=== PATIENT | male | born 1955 | race Caucasian/White ===

== ENCOUNTER 2017-09-30 03:38 | Inpatient (IN) | payer BC ==
[2017-09-30 04:51] LABS: Basophils # (A) 0.1 k/uL (0-0.2); Basophils % (A) 1 %; Eosinophils # (A) 0.1 k/uL (0-0.7); Eosinophils % (A) 1 %; HCT 43.1 % (39.0-53.0); HGB 15.2 gm/dL (13.0-17.5); Lymphocytes # (A) 1.7 k/uL (1.0-4.8); Lymphocytes % (A) 18 %; MCH 29.1 pg (25.0-35.0); MCHC 35.1 g/dL (31.0-37.0); MCV 82.9 fL (80.0-100.0); Mean Platelet Volume 6.6; Monocytes # (A) 0.7 k/uL (0-1.0); Monocytes % (A) 8 %; Neutrophils % (A) 71 %; Platelet Count 319 k/uL (150-450); RBC 5.21 m/uL (4.30-5.90); RDW 13.2 % (11.5-15.5); WBC 9.8 k/uL (3.8-10.6)
[2017-09-30 05:16] LABS: D-Dimer 0.4 mg/L FEU (<0.60)
[2017-09-30 05:20] LABS: INR 2.1 (<1.2); Partial Thromboplastin Time 30.6 sec (22.0-30.0); Prothrombin Time 19.1 sec (9.0-12.0)
[2017-09-30 05:22] LABS: ALT 35 U/L (21-72); AST 104 U/L (17-59); Albumin 3.9 g/dL (3.5-5.0); Alkaline Phosphatase 113 U/L (38-126); Anion Gap 13 mmol/L; Blood Urea Nitrogen 17 mg/dL (9-20); Calcium 9.5 mg/dL (8.4-10.2); Carbon Dioxide 24 mmol/L (22-30); Chloride 107 mmol/L (98-107); Glucose 167 mg/dL (74-99); Potassium 4.5 mmol/L (3.5-5.1); Sodium 144 mmol/L (137-145); Total Bilirubin 0.4 mg/dL (0.2-1.3); Total Protein 7.1 g/dL (6.3-8.2)
[2017-09-30 05:41] LABS: Creatine Kinase MB 66.7 ng/mL (0.0-2.4)
[2017-09-30 05:42] LABS: Troponin I 13.2 ng/mL (0.000-0.034)
[2017-09-30] MEDS ORDERED: NITROGLYCERIN SL TABS 0.4 MG TAB SUBLINGUAL PRN ×2 (06:03→12:23)
--- NOTE | 2017-09-30 06:07 | ED ---
Chest Pain HPI - General Chief Complaint: Chest Pain Stated Complaint: Chest Pain Time Seen by Provider: 09/30/17 03:40 Source: patient Mode of arrival: EMS Limitations: no limitations - History of Present Illness Initial Comments: This patient is a 62-year-old man who is transferred here from [facility] where he had gone tonight after he developed chest pain. The patient reports she was in usual state of health until between 9 and 10 PM. He had eaten Malcolm and then noticed that he was having pain to the lateral left chest in the midaxillary line, just under the axilla. He describes as an aching , constant, moderate intensity. It was accompanied by some dyspnea, palpitations, and nausea. He took 2 aspirin. The patient went to the other hospital where he was noted to be in atrial fibrillation with rapid ventricular rate, and he also had a minimally elevated troponin at 0.4. The patient was started on a nitroglycerin drip, had rate control, and he states that his pain did resolve. The patient states that he has been symptom-free. He is not having pain, dyspnea, nausea or other symptoms. MD Complaint: chest pain -: hour(s) Onset: after eating Pain Location: left chest Pain Radiation: LUE Severity: moderate Quality: aching Consistency: now resolved Improves With: nitroglycerin, other Worsens With: nothing Anginal Symptoms: nausea, dyspnea Treatments Prior to Arrival: aspirin, nitroglycerin, oxygen - Related Data Home Medications Medication Instructions Recorded Confirmed Furosemide [Lasix] 40 mg PO DAILY 12/04/13 09/30/17 Multivitamin [Men's Multi-Vitamin] 1 tab PO DAILY 12/04/13 09/30/17 Warfarin [Coumadin] 5 mg PO SUTUFR 12/04/13 09/30/17 Diltiazem HCl [Diltiazem ER] 360 mg PO DAILY 09/30/17 09/30/17 L.acidoph,Paracasei, B.lactis 1 cap PO DAILY 09/30/17 09/30/17 [Probiotic] [place]-3 Fatty Acids/Fish Oil [Fish 4,000 mg PO DAILY 09/30/17 09/30/17 Oil 1,000 mg Softgel] Warfarin [Coumadin] 2.5 mg PO MOWETHSA 09/30/17 09/30/17 Allergies Allergy/AdvReac Type Severity Reaction Status Date / Time No Known Allergies Allergy Verified 09/30/17 10:51 Review of Systems ROS Statement: Those systems with pertinent positive or pertinent negative responses have been documented in the HPI. ROS Other: All systems not noted in ROS Statement are negative. Constitutional: Denies: fever, chills, weakness Respiratory: Reports: dyspnea. Denies: cough, wheezes Cardiovascular: Reports: chest pain, palpitations. Denies: orthopnea, edema, syncope Gastrointestinal: Reports: nausea. Denies: abdominal pain, vomiting, diarrhea Genitourinary: Denies: dysuria, hematuria Musculoskeletal: Denies: back pain Skin: Denies: rash Neurological: Denies: headache, weakness, numbness Hematological/Lymphatic: Denies: easy bleeding EKG Findings - EKG Results: EKG: interpreted by ERMD EKG shows: atrial fibrillation (Rate approximately 93 bpm) - Blocks, [place], Hypertrophy, ST Abn: AV and intraventricular conduction: right bundle branch block (fixed/ intermittent, complete/incomplete) Repolarization changes or abnormalities: ST or T wave suggestive of ischemia ( Lateral leads) - DE, Pacemaker, Normal: Myocardial infarction: inferior DE (old age indeterminate) Past Medical History Past Medical History: Atrial Fibrillation, Hypertension, Osteoarthritis (OA), Pneumonia, Sleep Apnea/CPAP/BIPAP Additional Past Medical History / Comment(s): BLOOD CLOT IN HEART 2012. USES CPAP FOR SLEEP APNEA History of Any Multi-Drug Resistant Organisms: None Reported Past Surgical History: Orthopedic Surgery Additional Past Surgical History / Comment(s): CARDIOVERSION ATTEMPTED 08/2012. LT KNEE ARTHROSCOPY Past Anesthesia/Blood Transfusion Reactions: No Reported Reaction Past Psychological History: No Psychological Hx Reported Smoking Status: Never smoker Past Alcohol Use History: Rare Past Drug Use History: None Reported - Past Family History Father Family Medical History: Coronary Artery Disease (CAD), Osteoarthritis (OA) General Exam Limitations: no limitations General appearance: alert, in no apparent distress, obese Head exam: Present: atraumatic, normocephalic Eye exam: Present: normal appearance. Absent: scleral icterus, conjunctival injection ENT exam: Present: normal oropharynx Respiratory exam: Present: normal lung sounds bilaterally. Absent: respiratory distress, wheezes, rales, rhonchi, stridor Cardiovascular Exam: Present: irregular rhythm, normal heart sounds. Absent: systolic murmur, diastolic murmur, rubs, gallop GI/Abdominal exam: Present: soft. Absent: distended, tenderness, guarding, rebound, mass Extremities exam: Present: normal inspection, normal capillary refill. Absent: pedal edema, calf tenderness Back exam: Present: normal inspection. Absent: CVA tenderness (R), CVA tenderness (L) Neurological exam: Present: alert Skin exam: Present: warm, dry, intact, normal color. Absent: rash Course Vital Signs 09/30/17 09/30/17 09/30/17 03:48 06:32 07:15 Temperature 98.2 F Pulse Rate 92 91 106 H Pulse Rate [ Lithographic Stripper ] Respiratory 20 20 18 Rate Blood Pressure 153/105 134/78 142/73 Blood Pressure [Left Arm] O2 Sat by Pulse 96 95 97 Oximetry 09/30/17 09/30/17 09/30/17 08:30 09:42 10:37 Temperature 97.8 F 98.1 F 98 F Pulse Rate 96 109 H Pulse Rate [ 98 Lithographic Stripper ] Respiratory 12 18 18 Rate Blood Pressure 139/89 148/82 Blood Pressure 131/65 [Left Arm] O2 Sat by Pulse 96 96 97 Oximetry Chest Pain [facility] Patient is 62-year-old man with history of atrial fibrillation, who had episode of chest pain associated with atrial fibrillation and a rapid ventricular rate. He presented to the outside hospital, where he had rate control and was symptom-free when transferred here. His second troponin is 13.2, and I discussed his case with cardiology and there treatment recommendations are incorporated. No heparin as his Coumadin is therapeutic. He remains symptom free through his course in emergency department. Critical Care Time Critical Care Time: Yes (35 minutes) Disposition Clinical Impression: NSTEMI (non-ST elevated myocardial infarction) Disposition: ADMITTED IP TO THIS HOSP Condition: Serious
[2017-09-30] MEDS: NITROGLYCERIN-D5W PMX 50 MG in DEXTROSE/WATER 1 250ML.BAG IV SCH ×2 (07:13→11:15)
[2017-09-30] MEDS ORDERED: DILTIAZEM CD 180 MG CAP.ER.24H PO SCH (09:00)
[2017-09-30] MEDS ORDERED: ASPIRIN 325 MG TAB PO SCH (09:00)
[2017-09-30] MEDS ORDERED: ASPIRIN 81 MG PO SCH (09:00)
[2017-09-30] MEDS: MULTIVITAMINS, THERA 1 EACH TAB PO SCH (09:09)
[2017-09-30] MEDS: FUROSEMIDE 40 MG TAB PO SCH (09:10)
[2017-09-30] MEDS ORDERED: LIDOCAINE 2% INJ 20 MG/ML (20 ML MDV) ONE (10:03)
[2017-09-30] MEDS ORDERED: VERAPAMIL 2.5 MG/ML 2 ML AMP ONE (10:03)
--- NOTE | 2017-09-30 10:12 | CONS ---
CONSULTATION CHIEF COMPLAINT: Chest pain. HISTORY OF PRESENT ILLNESS: Abhishek is a 62-year-old gentleman with history of chronic atrial fibrillation, who presented to [facility] Emergency room with some discomfort in the axillary area. It was moderate in intensity, described as an aching without radiation to neck, arm or back. He was in atrial fibrillation with rapid ventricular rate and after the initial evaluation and treatment by the ER doctor, the heart rate was better controlled. He was actually thinking of sending him home when the 2nd set of troponin came back minimally elevated due to which he was transferred to [facility] where the subsequent troponin came back at 13. The patient has remained chest pain- free and hemodynamically stable through the night and at the time of my evaluation this morning, he is pain-free and free of symptoms. PAST MEDICAL HISTORY: Significant for chronic atrial fibrillation. MEDICATIONS: Include Cardizem, aspirin, Lasix, and Coumadin. ALLERGIES: There are no known drug allergies. FAMILY HISTORY: Negative for premature coronary artery disease. SOCIAL HISTORY: Negative for smoking, ETOH abuse or drug abuse. REVIEW OF SYSTEMS: HEENT is unremarkable. Cardiac as described above. Respiratory negative. GI negative. Genitourinary negative. Allergy none. Skin negative. Musculoskeletal significant for arthritis. Psychosocial negative. Endocrine: Negative. Derm: Negative. CONSTITUTIONAL: Negative. ONCOLOGICAL: Negative. Rest of the systems review is not relevant. PHYSICAL EXAM: Heart rate is 96, blood pressure of 139/89, afebrile, O2 sat is 96%. There is no jugular venous distention. Chest exam reveals good air entry bilaterally. Heart exam reveals first and second heart sounds, irregular rhythm. No murmur. ABDOMEN: Soft. Exam of the extremities did not reveal any edema. Peripheral pulses are palpable. LAB: Hemoglobin of 15.2, platelet count is 319. INR is 2.1. Potassium is 4.5, creatinine is 0.8. CPK 702, CK-MB 66, troponin is elevated at 13.2. EKG shows atrial fibrillation with nonspecific ST-T wave changes and evidence of prior inferior wall myocardial infarction. An echocardiogram shows apical hypokinesis. ASSESSMENT: 1. Acute non ST-segment elevation myocardial infarction. 2. Chronic atrial fibrillation. PLAN: The patient will undergo cardiac catheterization this morning. We will do a radial cath on him. He is at increased risk for procedure related bleeding given the Coumadin that he is on, but I explained this to the patient and we decided to proceed with a cath this morning as we were concerned that he may have a completely occluded vessel. MERARI / GARRYN: [id number] /
[2017-09-30 10:33] LABS: Creatine Kinase MB 74.2 ng/mL (0.0-2.4); Troponin I 19.1 ng/mL (0.000-0.034)
[2017-09-30] MEDS ORDERED: MIDAZOLAM 2 MG/2 ML VIAL ONE (10:54)
[2017-09-30] MEDS ORDERED: HEPARIN SODIUM 1,000 UN/ML (10ML VL) ONE (10:54)
[2017-09-30] MEDS ORDERED: SODIUM CHLORIDE 0.9% 500 ML IV ONE ×2 (11:02→14:51)
[2017-09-30] MEDS ORDERED: NITROGLYCERIN SL TABS 0.4 MG TAB SUBLINGUAL ONE ×2 (11:02→11:04)
[2017-09-30] MEDS ORDERED: MIDAZOLAM 2 MG/2 ML VIAL IVP ONE (11:05)
[2017-09-30] MEDS ORDERED: diphenhydrAMINE 50 MG/ML 1 ML VIAL ONE (11:07)
[2017-09-30] MEDS ORDERED: LIDOCAINE 2% INJ 20 MG/ML SQ ONE (11:09)
[2017-09-30] MEDS ORDERED: diphenhydrAMINE 50 MG/ML 1 ML VIAL IVP ONE (11:09)
[2017-09-30] MEDS ORDERED: HEPARIN SODIUM 1,000 UN/ML (10ML VL) IV ONE (11:13)
[2017-09-30] MEDS: VERAPAMIL SYRINGE (5 MG/10 ML) INTRAARTER ONE ×2 (11:14→12:20)
[2017-09-30] MEDS ORDERED: METOPROLOL TARTRATE 5 MG/5 ML VIAL IVP ONE ×2 (11:17→11:21)
[2017-09-30] MEDS ORDERED: BIVALIRUDIN 250 MG in SODIUM CHLORIDE 0.9% 50 ML IV ONE (11:29)
[2017-09-30] MEDS: NITROGLYCERIN 1000MCG/10ML SYRINGE INTRACORON ONE ×2 (11:39→11:58)
--- NOTE | 2017-09-30 11:42 | P.HPIM ---
History of Present Illness H&P Date: 09/30/17 Chief Complaint: chest pain This is a 62-year-old patient well known to me who was transferred from [facility] where he had gone tonight after he developed chest pain. He had eaten 4 [place] [employer] and then noticed that he was having pain to the left chest. He told the ER doctor the pain was aching, constant, moderate intensity. It was accompanied by some dyspnea, palpitations, and nausea. He took 2 aspirin. While at [facility] he was noted to be in atrial fibrillation with rapid ventricular rate, and he also had a minimally elevated troponin at 0.4. He was given nitroglycerin and the pain did resolve. The patient states that he has been symptom-free. He is not having pain, dyspnea, nausea or other symptoms. He was transferred here to [facility]. He is found to have a troponin of 13+ at that time. Dr. Valladares had consult on him. He has since been moved to the Exhaust [facility]er for emergent procedure. Review of Systems All systems: negative Past Medical History Past Medical History: Atrial Fibrillation, Hypertension, Osteoarthritis (OA), Pneumonia, Sleep Apnea/CPAP/BIPAP Additional Past Medical History / Comment(s): BLOOD CLOT IN HEART 2012. USES CPAP FOR SLEEP APNEA History of Any Multi-Drug Resistant Organisms: None Reported Past Surgical History: Orthopedic Surgery Additional Past Surgical History / Comment(s): CARDIOVERSION ATTEMPTED 08/2012. LT KNEE ARTHROSCOPY Past Anesthesia/Blood Transfusion Reactions: No Reported Reaction Past Psychological History: No Psychological Hx Reported Smoking Status: Never smoker Past Alcohol Use History: Rare Past Drug Use History: None Reported Medications and Allergies Home Medications Medication Instructions Recorded Confirmed Type Furosemide [Lasix] 40 mg PO DAILY 12/04/13 09/30/17 History Multivitamin [Men's Multi-Vitamin] 1 tab PO DAILY 12/04/13 09/30/17 History Warfarin [Coumadin] 5 mg PO SUTUFR 12/04/13 09/30/17 History Diltiazem HCl [Diltiazem ER] 360 mg PO DAILY 09/30/17 09/30/17 History L.acidoph,Paracasei, B.lactis 1 cap PO DAILY 09/30/17 09/30/17 History [Probiotic] [place]-3 Fatty Acids/Fish Oil [Fish 4,000 mg PO DAILY 09/30/17 09/30/17 History Oil 1,000 mg Softgel] Warfarin [Coumadin] 2.5 mg PO MOWETHSA 09/30/17 09/30/17 History Allergies Allergy/AdvReac Type Severity Reaction Status Date / Time No Known Allergies Allergy Verified 09/30/17 10:51 Physical Exam Vitals: Vital Signs Temp Pulse Resp BP Pulse Ox 09/30/17 10:37 98 F 109 H 18 148/82 97 09/30/17 08:30 97.8 F 96 12 139/89 96 09/30/17 07:15 106 H 18 142/73 97 09/30/17 06:32 91 20 134/78 95 09/30/17 03:48 98.2 F 92 20 153/105 96 Intake and Output 09/29/17 09/30/17 09/30/17 22:59 06:59 14:59 Output Total 300 Balance -300 Output: Urine 300 Other: Weight 136.078 kg Exam was deferred to Dr. JESUS Dodd, as he is currently in the Ex[facility] undergoing procedure. I did speak with the patient personally but my exam was deferred at this time. Results CBC & Chem 7: 09/30/17 04:11 09/30/17 04:11 Labs: Abnormal Lab Results - Last 24 Hours (Table) 09/30/17 09/30/17 09/30/17 Range/Units 04:11 04:11 04:11 PT 19.1 H (9.0-12.0) sec INR 2.1 H (<1.2) APTT 30.6 H (22.0-30.0) sec Glucose 167 H (74-99) mg/dL AST 104 H (17-59) U/L Total Creatine Kinase 702 H (55-170) U/L CK-MB (CK-2) 66.7 H* (0.0-2.4) ng/mL Troponin I 13.200 H* (0.000-0.034) ng/mL 09/30/17 Range/Units 09:37 PT (9.0-12.0) sec INR (<1.2) APTT (22.0-30.0) sec Glucose (74-99) mg/dL AST (17-59) U/L Total Creatine Kinase 810 H (55-170) U/L CK-MB (CK-2) 74.2 H* (0.0-2.4) ng/mL Troponin I 19.100 H* (0.000-0.034) ng/mL Comments: EKG was reviewed. Assessment and Plan Plan: Acute non-ST segment elevation myocardial infarction: He is currently undergoing cardiac catheterization to evaluate this. I'll defer to cardiology for their further recommendations. Troponins were 13.2 in the 19.1. Chronic atrial fibrillation: He remains on Coumadin. Cardiology decide whether he should remain on this be changed to heparin drip at this time. His INR was therapeutic at 2.1. Hypertension Long-term Coumadin anticoagulation I'll defer to cardiology at this time. I'll reevaluate him in next 24 hours. I 'll wait on his upcoming procedure.
[2017-09-30] MEDS ORDERED: CLOPIDOGREL 75 MG TAB ONE ×2 (11:50)
[2017-09-30] MEDS ORDERED: IOHEXOL 350 MG/ML (PER ML) 100ML BTL INJ ONE (12:10)
[2017-09-30] MEDS ORDERED: CLOPIDOGREL 75 MG TAB PO ONE (12:18)
[2017-09-30] MEDS ORDERED: MAG HYDROX/AL HYDROX/SIMETH 30 ML CUP PO PRN (12:23)
[2017-09-30] MEDS ORDERED: RX INFO: IV CONTRAST WAS GIVEN 1 EACH MISC MISCELLANE PRN (12:23)
[2017-09-30] MEDS ORDERED: ZOLPIDEM 5 MG TAB PO PRN (12:23)
[2017-09-30] MEDS ORDERED: ATROPINE SULFATE 0.1 MG/ML 10ML SYRINGE IV PRN (12:23)
--- NOTE | 2017-09-30 13:38 | ECHOF ---
Referral Reason:NSTEMI MEASUREMENTS -------- HEIGHT: 182.9 cm WEIGHT: 136.1 kg BP: 148/82 IVSd: 1.2 cm (0.6 - 1.1) LVIDd: 4.9 cm (3.9 - 5.3) LVPWd: 0.9 cm (0.6 - 1.1) IVSs: 1.2 cm LVIDs: 4.0 cm LVPWs: 0.9 cm LA Diam: 4.3 cm (2.7 - 3.8) Ao Diam: 3.5 cm (2.0 - 3.7) AV Cusp: 2.4 cm (1.5 - 2.6) LA Diam: 4.8 cm (2.7 - 3.8) MV EXCURSION: 28.850 mm (> 18.000) MV EF SLOPE: 106 mm/s (70 - 150) EPSS: 0.9 cm MV E Malcolm: 1.11 m/s MV DecT: 97 ms MV A Malcolm: 0.23 m/s MV E/A Ratio: 4.83 RAP: 5.00 mmHg RVSP: 20.01 mmHg FINDINGS -------- Atrial fibrillation. Morbid Obesity This was a techncally difficult study with suboptimal views, , Lumason utilized for enhancement of im ages. The left ventricular size is normal. There is mild concentric left ventricular hypertrophy. Overa ll left ventricular systolic function is moderate-severely impaired with, an EF between 30 - 35 %. Anterseptal Hypokinesis [place] Hypokinesis. Basal septal hypokinesis The right ventricle is normal in size. The left atrium is moderately dilated. The right atrial size is normal. 5.0mg OF Lumason UTLIZED: 2 OR MORE WALL SEGMENTS NOT VISUALIZED. There is mild aortic valve sclerosis. There is no evidence of aortic regurgitation. Mild mitral annular calcification present. Mild mitral regurgitation is present. Mild tricuspid regurgitation present. There is no evidence of pulmonary hypertension. The right v entricular systolic pressure, as measured by Doppler, is 20.01mmHg. There is no pulmonic regurgitation present. The aortic root size is normal. There is no pericardial effusion. CONCLUSIONS -------- 1. Morbid Obesity 2. This was a techncally difficult study with suboptimal views, , Lumason utilized for enhancement of images. 3. The left ventricular size is normal. 4. There is mild concentric left ventricular hypertrophy. 5. Overall left ventricular systolic function is moderate-severely impaired with, an EF between 30 - 35 %. 6. Anterseptal Hypokinesis 7. [place] Hypokinesis. 8. Basal septal hypokinesis 9. The left atrium is moderately dilated. 10. 5.0mg OF Lumason UTLIZED: 2 OR MORE WALL SEGMENTS NOT VISUALIZED. 11. There is mild aortic valve sclerosis. 12. Mild mitral annular calcification present. 13. Mild mitral regurgitation is present. 14. Mild tricuspid regurgitation present. 15. There is no evidence of pulmonary hypertension. 16. The right ventricular systolic pressure, as measured by Doppler, is 20.01mmHg. 17. There is no pulmonic regurgitation present. 18. The aortic root size is normal. 19. There is no pericardial effusion. RAILROAD CRANE OPERATOR: Latanya Crandall RDCS
[2017-09-30] MEDS: SODIUM CHLORIDE 0.9% 1,000 ML IV SCH (16:35)
[2017-09-30 17:42] LABS: Creatine Kinase MB 44.7 ng/mL (0.0-2.4)
[2017-09-30 17:43] LABS: Troponin I 12.9 ng/mL (0.000-0.034)
[2017-09-30] MEDS ORDERED: WARFARIN 2.5 MG TAB PO SCH (18:00)
--- NOTE | 2017-09-30 19:00 | CC ---
CARDIAC CATHETERIZATION REPORT DATE OF SERVICE: 09/30/2017. PROCEDURES: 1. Left heart catheterization and coronary angiography. 2. Percutaneous transluminal coronary angioplasty and stenting of proximal circumflex marginal with a drug-eluting stent. 3. Percutaneous transluminal coronary angioplasty and stenting of mid left anterior descending coronary artery with a drug-eluting stent. Moderate conscious sedation time was 72 minutes. The patient was given Versed and Benadryl combination. His vital signs, EKG and oxygen saturation were monitored closely. CLINICAL INFORMATION: Mr. 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 He has been doing well, but he came into the hospital with discomfort in the chest and left armpit area, went to [facility], was transferred here because of elevated troponin suggestive of non-ST elevation CT. He was in atrial fibrillation with a moderate ventricular rate, hemodynamically stable. He was advised a coronary angiography. His INR was 2.1 and he was advised the procedure from the radial approach and Dr. Valladares saw and evaluated the patient and requested me to perform coronary angiography, given the fact a radial approach would be better with a high INR. I saw the patient, spoke to him at length regarding risks, benefits, options and rationale and then proceeded with the procedure. PROCEDURE NOTE: Under local anesthesia and strict aseptic precautions, a 6-Polish introducer was placed in the right radial artery. Using an Ultimate 1 catheter, I performed selective coronary angiography and using a pigtail catheter, I checked LV pressures, but did not perform an LV-gram. I noted that there was a significant disease in the circumflex marginal which was subtotally occluded and also a mid LAD which had a high-grade lesion and was a large vessel. I recommend intervention in the same setting. LV-gram was not performed. CARDIAC CATHETERIZATION FINDINGS: The left ventricular end-diastolic pressure was about 20 mmHg without any gradient across the aortic valve. CORONARY ANGIOGRAPHY FINDINGS: Right coronary artery: Large dominant vessel, has minor irregularities, no more than 30% narrowing, distally bifurcates into a larger PDA. A smaller PLV supplies a fair amount of myocardium. No significant disease. RCA is a very dominant vessel. Left main coronary artery: Short, patent, disease-free vessel that bifurcates into LAD and circumflex. Left anterior descending coronary artery: Good-caliber vessel, extends along the anterior wall, gives off a small 1st diagonal and a large 2nd diagonal. Immediately after the large 2nd diagonal, there is an eccentric 80%-90% stenosis in a very calcified area. The caliber of the vessel then improves. It runs all the way to the apex supplying a sizable amount of myocardium. It gives off several septal branches and there are minor irregularities throughout the LAD. The diagonal branch that comes off at and above it and just before the lesion has about a 30%-40% narrowing. Left posterior circumflex coronary artery: Nondominant vessel, gives off a single obtuse marginal that has a very proximal stenosis of about 99% with very sluggish flow and the vessel appears to be subtotally occluded and this may be the culprit vessel responsible for the patient's non-ST elevation CT. Just at the origin of this obtuse marginal branch, the circumflex continues and gives off a left atrial circumflex that is quite large and supplies a sizable amount of myocardium. Distal branches of the obtuse marginal appear to be small in caliber and fair to moderate in distribution. The circumflex marginal therefore has a significant critical lesion. FINAL IMPRESSION: This patient has an 80%-90% mid left anterior descending and a 95%-99% proximal circumflex marginal of a nondominant vessel. Right coronary artery, which is dominant, does not have significant disease. Filling pressures are elevated. Left ventriculogram was not performed. RECOMMENDATION: I proceeded to perform PCI of circumflex initially and then LAD. MMODL / IJN: [id number] /
--- NOTE | 2017-09-30 19:09 | PTCA ---
PERCUTANEOUSTRANS CORORONARY ANGIOGRAPHY ADDENDUM: PCI PROCEDURE DETAILS: The patient received only Angiomax infusion, not a bolus. His INR was 2.1. He received 600 mg of Plavix orally. I used an Xb 3.5 guide catheter. MERARI / JUAN RAMON: [id number] / MTDD
--- NOTE | 2017-09-30 19:09 | LTR ---
Dear Dr. Wiseman: Thank you for for allowing me to participate in the in the care of Mr. Abhishek Augustin. Please find enclosed my detailed cardiac cath report for your records. This gentleman presented with a non-ST elevation [place] and underwent prompt stenting of circumflex and LAD with a good result. I expect he will be discharged in the next 36-48 hours. Thank you for your referral and please do call for questions. MMODL / IJN: [id number] /
[2017-09-30] MEDS: ATORVASTATIN 80 MG TAB PO SCH (21:00)
[2017-09-30] MEDS: METOPROLOL TARTRATE 50 MG TAB PO SCH (21:01)
[2017-10-01 06:18] LABS: Basophils # (A) 0.1 k/uL (0-0.2); Basophils % (A) 1 %; Eosinophils # (A) 0.3 k/uL (0-0.7); Eosinophils % (A) 3 %; HCT 45.2 % (39.0-53.0); HGB 14.3 gm/dL (13.0-17.5); Lymphocytes # (A) 1.8 k/uL (1.0-4.8); Lymphocytes % (A) 21 %; MCH 27.1 pg (25.0-35.0); MCHC 31.7 g/dL (31.0-37.0); MCV 85.5 fL (80.0-100.0); Mean Platelet Volume 7.1; Monocytes # (A) 0.7 k/uL (0-1.0); Monocytes % (A) 8 %; Neutrophils # (A) 5.7 k/uL (1.3-7.7); Neutrophils % (A) 65 %; Platelet Count 316 k/uL (150-450); RBC 5.29 m/uL (4.30-5.90); RDW 13.6 % (11.5-15.5); WBC 8.8 k/uL (3.8-10.6)
[2017-10-01 06:39] LABS: Anion Gap 13 mmol/L; Blood Urea Nitrogen 16 mg/dL (9-20); Calcium 9.4 mg/dL (8.4-10.2); Carbon Dioxide 21 mmol/L (22-30); Chloride 105 mmol/L (98-107); Cholesterol 172 mg/dL (<200); Glucose 117 mg/dL (74-99); HDL Cholesterol 34 mg/dL (40-60); LDL Cholesterol,Calculated 110 mg/dL (0-99); Potassium 4.6 mmol/L (3.5-5.1); Sodium 139 mmol/L (137-145); Triglycerides 139 mg/dL (<150)
[2017-10-01] MEDS: METOPROLOL TARTRATE 50 MG TAB PO SCH ×2 (07:48→20:36)
[2017-10-01] MEDS: CLOPIDOGREL 75 MG TAB PO SCH (07:48)
[2017-10-01] MEDS: ASPIRIN 81 MG PO SCH (07:48)
[2017-10-01] MEDS: RIVAROXABAN 10 MG TAB PO SCH (07:49)
[2017-10-01] MEDS: FUROSEMIDE 40 MG TAB PO SCH (07:49)
[2017-10-01] MEDS ORDERED: RIVAROXABAN 10 MG TAB PO SCH (09:00)
[2017-10-01] MEDS: [UNRECOGNIZED DRUG - OTHER] PO SCH (09:22)
[2017-10-01] MEDS: OMEGA 3 FATTY ACIDS PO SCH (09:22)
--- NOTE | 2017-10-01 09:40 | PN ---
PROGRESS NOTE Abhishek is a 70-year-old gentleman who was admitted to hospital with non ST-segment elevation PR. Underwent cardiac catheterization, angioplasty of mid LAD and [place] circumflex coronary artery. This morning, patient is doing well and is free of symptoms. I had a long conversation with the patient about his condition, prognosis and long-term care and plans. He is currently on aspirin, Plavix, Lipitor, Lopressor, Hyzaar, sublingual nitroglycerin on a p.r.n. basis, Xarelto 10 mg daily. The patient had an echo yesterday that showed that showed there was moderate to severely impaired LV systolic function with an ejection fraction of 30-35%. PHYSICAL EXAMINATION: The patient is free of chest pain this morning. On exam, he is comfortable at rest. Vital signs are stable. There is no jugular venous distention. Chest exam reveals good air entry bilaterally. Heart exam reveals first and second heart sounds, irregular rhythm. No murmur. Radial artery access site appears normal. The patient is in atrial fibrillation. There is no jugular venous distention. Carotid upstroke is normal. There is no bruit. Chest exam reveals good air entry bilaterally. Heart exam reveals first and second heart sounds. No gallop. Exam of the extremities did not reveal any edema. Peripheral pulses are felt. LAB: Showed that the hemoglobin is 14.3, platelet count is 313. Potassium is 4.6, creatinine is 0.9. The peak troponin was 19. LDL cholesterol is 110. ASSESSMENT: 1. Acute non ST-segment elevation myocardial infarction. 2. Ischemic cardiomyopathy. 3. Chronic atrial fibrillation with controlled ventricular rate. PLAN: Patient is doing well. We will continue with the current medications reviewed echo findings with the patient. 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 MMODL / IJN: [id number] /
[2017-10-01] MEDS: LOSARTAN-HCTZ 50-12.5 MG 1 EACH TAB PO SCH (10:50)
[2017-10-01] MEDS: MULTIVITAMINS, THERA 1 EACH TAB PO SCH (10:51)
--- NOTE | 2017-10-01 16:18 | P.PN ---
Subjective This is a 62-year-old patient well known to me who was transferred from [facility] where he had gone tonight after he developed chest pain. He had eaten 4 White Castles and then noticed that he was having pain to the left chest. He told the ER doctor the pain was aching, constant, moderate intensity. It was accompanied by some dyspnea, palpitations, and nausea. He took 2 aspirin. While at [facility] he was noted to be in atrial fibrillation with rapid ventricular rate, and he also had a minimally elevated troponin at 0.4. He was given nitroglycerin and the pain did resolve. The patient states that he has been symptom-free. He is not having pain, dyspnea, nausea or other symptoms. He was transferred here to [facility]. He is found to have a troponin of 13+ at that time. Dr. Valladares had consult on him. He has since been moved to the [facility] for emergent procedure. 10/01/2017 Is feeling well today. He denies any chest pains, pressures, shortness of breath, nausea, vomiting. He is tolerating a regular diet. He is status post cardiac catheterization with stenting of proximal circumflex marginal artery and mid left anterior descending artery. He has a history of chronic atrial fibrillation which is on Coumadin for. Test Worker changed him now to Xarelto. He is on aspirin and Plavix. He is now started on Lipitor 80 mg daily. Objective - Vital Signs Vital signs: Vital Signs Temp 97.3 F L 10/01/17 12:00 Pulse 99 10/01/17 12:00 Resp 16 10/01/17 12:00 BP 107/62 10/01/17 12:00 Pulse Ox 96 10/01/17 12:00 Intake & Output 09/30/17 10/01/17 10/01/17 18:59 06:59 18:59 Intake Total 980 236 Output Total 1825 0 Balance -845 0 236 Weight 136.36 kg 139.1 kg Intake: IV 500 Oral 480 236 Output: Urine 1825 0 Stool 0 0 Other: Voiding Method Toilet Toilet # Voids 0 0 1 # Bowel Movements 0 - Exam General: The patient is awake and alert, in no distress, and does not appear acutely ill. Neck: The neck is supple, there is no thyromegaly, lymphadenopathy, tenderness or JVD. Cardiovascular: S1S2 is normal, There is a regular rate and rhythm. No murmur, rub or gallop is appreciated. Respiratory: Lungs are clear to auscultation bilaterally, respirations are non -labored, breath sounds are equal. Gastrointestinal: Soft, non-distended, non-tender abdomen without masses or organomegaly noted. There is no rebound or guarding present. Bowel sounds are unremarkable. Musculoskeletal: Normal ROM, no tenderness, There is no pedal edema. There is no calf tenderness or swelling. No cords were appreciated. Neurological: CN II-XII intact, there are no obvious motor or sensory deficits. Coordination appears grossly intact. Speech is normal. Skin: Skin is warm and dry and no rashes or lesions are noted. - Labs CBC & Chem 7: 10/01/17 05:15 10/01/17 05:15 Labs: Abnormal Lab Results - Last 24 Hours (Table) 09/30/17 10/01/17 Range/Units 16:36 05:15 Carbon Dioxide 21 L (22-30) mmol/L Glucose 117 H (74-99) mg/dL Total Creatine Kinase 577 H (55-170) U/L CK-MB (CK-2) 44.7 H* (0.0-2.4) ng/mL Troponin I 12.900 H* (0.000-0.034) ng/mL LDL Cholesterol, Calc 110 H (0-99) mg/dL HDL Cholesterol 34 L (40-60) mg/dL Assessment and Plan Plan: Acute non-ST segment elevation myocardial infarction status post stenting of the proximal circumflex marginal artery and left anterior descending artery he will continue aspirin, Plavix, and now Xarelto in place of Coumadin. continue metoprolol, Hyzaar, Lipitor Chronic atrial fibrillation: He is now on Xarelto. Ischemic cardiomyopathy: Medications as above. Hypertension: He'll continue metoprolol and Hyzaar Long-term anticoagulation: Switch from Coumadin now Xarelto. Await on discharge planning to determine if his insurance covers it on Monday morning. He is much improved. We'll await further invasive cardiology. Weight on insurance coverage issues for Xarelto. Reevaluate next 24 hours.
[2017-10-01] MEDS: SODIUM CHLORIDE 0.9% 1,000 ML IV SCH (17:19)
[2017-10-01] MEDS: ATORVASTATIN 80 MG TAB PO SCH (20:36)
[2017-10-02 05:42] LABS: Basophils # (A) 0.1 k/uL (0-0.2); Basophils % (A) 1 %; Eosinophils # (A) 0.4 k/uL (0-0.7); Eosinophils % (A) 4 %; HCT 42.5 % (39.0-53.0); HGB 13.8 gm/dL (13.0-17.5); Lymphocytes # (A) 1.8 k/uL (1.0-4.8); Lymphocytes % (A) 21 %; MCH 27.2 pg (25.0-35.0); MCHC 32.4 g/dL (31.0-37.0); Mean Platelet Volume 6.8; Monocytes # (A) 0.7 k/uL (0-1.0); Monocytes % (A) 8 %; Neutrophils # (A) 5.3 k/uL (1.3-7.7); Neutrophils % (A) 63 %; Platelet Count 287 k/uL (150-450); RBC 5.06 m/uL (4.30-5.90); RDW 13.3 % (11.5-15.5); WBC 8.4 k/uL (3.8-10.6)
[2017-10-02 05:52] LABS: Anion Gap 9 mmol/L; Blood Urea Nitrogen 20 mg/dL (9-20); Calcium 9.3 mg/dL (8.4-10.2); Carbon Dioxide 26 mmol/L (22-30); Chloride 104 mmol/L (98-107); Glucose 106 mg/dL (74-99); Potassium 4.4 mmol/L (3.5-5.1); Sodium 139 mmol/L (137-145)
[2017-10-02] MEDS: CLOPIDOGREL 75 MG TAB PO SCH (09:39)
[2017-10-02] MEDS: ASPIRIN 81 MG PO SCH (09:39)
[2017-10-02] MEDS: FUROSEMIDE 40 MG TAB PO SCH (09:39)
[2017-10-02] MEDS: LOSARTAN-HCTZ 50-12.5 MG 1 EACH TAB PO SCH (09:39)
[2017-10-02] MEDS: RIVAROXABAN 10 MG TAB PO SCH (09:40)
[2017-10-02] MEDS: METOPROLOL TARTRATE 50 MG TAB PO SCH ×2 (09:40→20:22)
[2017-10-02] MEDS: MULTIVITAMINS, THERA 1 EACH TAB PO SCH (09:40)
[2017-10-02] MEDS: [UNRECOGNIZED DRUG - OTHER] PO SCH (09:40)
[2017-10-02] MEDS: OMEGA 3 FATTY ACIDS PO SCH (09:40)
--- NOTE | 2017-10-02 11:21 | P.PN ---
Subjective Progress Note Date: 10/02/17 Principal diagnosis: Non-STEMI This pleasant 62-year-old gentleman with history of chronic persistent atrial fibrillation, who presented to the hospital with a non-ST elevation myocardial infarction. He was taken to the cardiac catheterization lab, and subsequently underwent stenting of the LAD and circumflex artery. Echocardiogram with Doppler study was performed which revealed an ejection fraction of 30-35%. Patient was seen and examined this morning, blood pressure 122/60, heart rate in the 80s. White blood cell count 8.4, hemoglobin 13.8, sodium 139, potassium 4.4, BUN 20, creatinine 0.8. Troponin level peaked at 19.1. He has been up ambulating in the hallway this morning, denies any chest discomfort, breathing overall has been stable. Objective - Vital Signs Vital signs: Vital Signs Temp 97.7 F 10/02/17 04:00 Pulse 95 10/02/17 09:42 Resp 16 10/02/17 04:00 BP 123/66 10/02/17 09:42 Pulse Ox 97 10/02/17 09:42 Intake & Output 10/01/17 10/02/17 10/02/17 18:59 06:59 18:59 Intake Total 472 20 180 Balance 472 20 180 Weight 139.5 kg Intake: IV 20 .9 20 Oral 472 180 Other: # Voids 1 1 # Bowel Movements 1 - Exam PHYSICAL EXAMINATION: HEENT: Head is atraumatic, normocephalic. Pupils equal, round. Neck is supple. There is no elevated jugular venous pressure. HEART EXAMINATION: Heart S1, S2 irregularly irregular . No murmur or gallop heard. CHEST EXAMINATION: Lungs are clear to auscultation and precussion. No chest wall tenderness is noted on palpation or with deep breathing. ABDOMEN: Soft, nontender. Bowel sounds are heard. No organomegaly noted. EXTREMITIES: 2+ peripheral pulses with no evidence of peripheral edema and no calf tenderness noted. NEUROLOGIC patient is awake, alert and oriented -3. . - Labs CBC & Chem 7: 10/02/17 05:24 10/02/17 05:24 Labs: Abnormal Lab Results - Last 24 Hours (Table) 10/02/17 Range/Units 05:24 Glucose 106 H (74-99) mg/dL Assessment and Plan Plan: Assessment and plan #1 acute non-ST elevation myocardial infarction, status post angioplasty and stenting of the LAD and circumflex artery. #2 chronic persistent atrial fibrillation #3 ischemic cardio myopathy with documented ejection fraction of 30-35%. #4 hyperlipidemia Plan Patient has been encouraged to be up in the hallway as tolerated. We'll make medication adjustments as necessary, plan for possible discharge home in 24-48 hours if stable. Further recommendations to follow. DNP note has been reviewed, I agree with a documented findings and plan of care. Patient was seen and examined.
[2017-10-02 12:18] VITALS: RESP 18
--- NOTE | 2017-10-02 12:33 | CDI ---
Last Revision, June 2017 Documentation Clarification Form Date: 10/02/17 1230 From: Molly White RN, CCDS Admit Date: 09/30/2017 6:03:00 AM Patient Name: Abhishek Augustin Visit Number: [id number] ATTENTION: The Clinical Documentation Specialists (CDI) and [facility] Coding Staff appreciate your assistance in clarifying documentation. Please respond to the clarification below the line at the bottom and electronically sign. The CDI & [facility] Coding staff will review the response and follow-up if needed. Please note: Queries are made part of the Legal Health Record. If you have any questions, please contact the author of this message via ITS. Dr. Arjun Valladares/ Josseline Ashford DNP History/Risk Factors: NSTEMI this admission with PTCA, Ischemic cardiomyopathy, Chronic Atrial Fib Clinical Indicators: VS/Pulse OX: Temp 98.2, HR 92, RR 20, B/P 153/105, Spo2 96% RA BNP: not done Echocardiogram Results: EF 30-35% Chest X Ray: not done Treatment: Lasix 40 mg PO BID In your professional opinion, can you please clarify the acuity and type of CHF if known? Chronic Systolic Heart Failure: Chronic Diastolic Heart Failure: Chronic Systolic & Diastolic Heart Failure: Unable to Determine Other, please specify Please continue to document in your progress notes and discharge summary in order to capture severity of illness and risk of mortality. Include clinical findings that support your diagnosis. MTDD
--- NOTE | 2017-10-02 12:57 | P.PN ---
Subjective Progress Note Date: 10/02/17 Patient seen and examined at the bedside. Patient underwent cardiac cath on 09/30 with stent placement to the LAD and circumflex. patient currently denies chest pain. Denies shortness of breath or coughing. Denies nausea or vomiting. Patient is tolerating PO intake. States he is voiding without difficulty. Objective - Vital Signs Vital signs: Vital Signs Temp 97.7 F 10/02/17 04:00 Pulse 59 L 10/02/17 11:50 Resp 18 10/02/17 11:50 BP 126/79 10/02/17 11:50 Pulse Ox 98 10/02/17 11:50 Intake & Output 10/01/17 10/02/17 10/02/17 18:59 06:59 18:59 Intake Total 472 20 180 Balance 472 20 180 Weight 139.5 kg Intake: IV 20 .9 20 Oral 472 180 Other: # Voids 1 1 # Bowel Movements 1 - Exam GENERAL: This is a 62-year-old male in no apparent distress at the time of examination. Pleasant and cooperative. HEENT: Head is atraumatic, normocephalic. Pupils are equal, round, and reactive to light. Sclerae anicteric. Conjunctivae are clear. Mucus membranes of the mouth are moist. Neck is supple. RESPIRATORY: Clear to ausculation. No wheezes, rales, or rhonchi. No use of accessory muscles. Patient maintaining oxygen saturation greater than 92%. No chest wall tenderness is noted on palpation or with deep breathing. CARDIOVASCULAR: irregular rate. S1 and S2 noted. No systolic or diastolic murmur auscultated. No JVD noted. No S3 or S4 noted. GASTROINTESTINAL: No distention noted. Abdomen soft and round. Normal active bowel sounds auscultated x 4 quadrants. No pain or tenderness noted upon palpation. INTEGUMENTARY: No cyanosis. No jaundice. No rashes noted. No cellulitis noted. EXTREMITIES: 2+ peripheral pulses. No evidence of peripheral edema. No calf tenderness noted. NEUROLOGIC: Cranial nerves II-XII intact. PSYCHIATRIC: Awake, alert, and oriented X 3. Appropriate affect. Intact judgement and insight. - Labs CBC & Chem 7: 10/02/17 05:24 10/02/17 05:24 Labs: Abnormal Lab Results - Last 24 Hours (Table) 10/02/17 Range/Units 05:24 Glucose 106 H (74-99) mg/dL Assessment and Plan Plan: ASSESSMENT: Acute non-ST elevated myocardial infarction, s/p angioplasty and stent of the LAD and circumflex artery Chronic atrial fibrillation Ischemic cardiomyopathy with ejection fraction of 30-35% Hyperlipidemia Morbid obesity: BMI 40.6 PLAN: Cardiology on consult. Continue current medications Home meds as appropriate Monitor labs Monitor vital signs and address as appropriate Discharge planning: Patient to return home when stable Further recommendations pending patient's course Anticipate discharge home tomorrow Nurse practitioner note has been reviewed by physician. Signing provider agrees with the documented findings, assessment, and plan of care.
[2017-10-02 13:36] VITALS: BMI 40.6
[2017-10-02] MEDS ORDERED: RIVAROXABAN 20 MG TAB PO SCH (17:30)
[2017-10-02] MEDS: ATORVASTATIN 80 MG TAB PO SCH (20:22)
[2017-10-03] MEDS: ASPIRIN 81 MG PO SCH (08:43)
[2017-10-03] MEDS: FUROSEMIDE 40 MG TAB PO SCH (08:44)
[2017-10-03] MEDS: METOPROLOL TARTRATE 50 MG TAB PO SCH (08:44)
[2017-10-03] MEDS: LOSARTAN-HCTZ 50-12.5 MG 1 EACH TAB PO SCH (08:44)
[2017-10-03] MEDS: CLOPIDOGREL 75 MG TAB PO SCH (08:44)
[2017-10-03] MEDS: MULTIVITAMINS, THERA 1 EACH TAB PO SCH (08:44)
[2017-10-03 08:52] VITALS: BP 113/78; TEMP 98.1
[2017-10-03 10:44] VITALS: PULSE 91
--- NOTE | 2017-10-03 10:45 | P.PN ---
Subjective Progress Note Date: 10/03/17 Principal diagnosis: NSTEMI This is a pleasant 62-year-old gentleman with history of chronic persistent atrial fibrillation, presented to the hospital with a non-ST elevation myocardial infarction. He was taken for cardiac catheterization and subsequently underwent stenting of LAD and circumflex artery. Echocardiogram with Doppler study was performed which revealed an ejection fraction of 30-35%. Upon examination, patient is resting comfortable in bed. Right radial puncture site is soft without ecchymosis or hematoma. It'll signs are stable with a heart rate in the 70s and blood pressure 113/78 and oxygen saturation of 97% on room air. The retrograde values were reviewed and showed hemoglobin of 13.8, potassium 4.4 and creatinine of 0.89. Objective - Vital Signs Vital signs: Vital Signs Temp 98.1 F 10/03/17 08:51 Pulse 78 10/03/17 08:51 Resp 18 10/03/17 08:51 BP 113/78 10/03/17 08:51 Pulse Ox 97 10/03/17 08:51 Intake & Output 10/02/17 10/03/17 10/03/17 18:59 06:59 18:59 Intake Total 1020 180 Output Total 0 Balance 1020 0 180 Weight 139.5 kg 138.7 kg Intake: Oral 1020 180 Output: Stool 0 Other: Voiding Method Toilet # Voids 2 2 # Bowel Movements 1 - Exam PHYSICAL EXAMINATION: HEENT: Head is atraumatic, normocephalic. Pupils equal, round. Neck is supple. There is no elevated jugular venous pressure. HEART EXAMINATION: Heart sounds irregularly irregular, S1 and S2 normal. No murmur or gallop heard. CHEST EXAMINATION: Lungs are clear to auscultation and precussion. No chest wall tenderness is noted on palpation or with deep breathing. ABDOMEN: Soft, nontender. Bowel sounds are heard. No organomegaly noted. EXTREMITIES: 2+ peripheral pulses with no evidence of peripheral edema and no calf tenderness noted. Right radial puncture site soft without ecchymosis or hematoma. NEUROLOGIC patient is awake, alert and oriented x3. . - Labs CBC & Chem 7: 10/02/17 05:24 10/02/17 05:24 Assessment and Plan Assessment: #1 acute non-ST elevation myocardial infarction, status post angioplasty and stenting of the LAD and circumflex artery #2 chronic atrial fibrillation #3 ischemic cardiomyopathy with documented ejection fraction of 30-35% #4 hyperlipidemia #5 hypertension Plan: From cardiology's perspective, patient is stable for discharge home. Continue Plavix and aspirin as well as Xarelto. Also continue Hyzaar, metoprolol and Lipitor. He will follow up with Dr. Beaver in the office next week. The above dictated assessment and findings were discussed with signing physician. The impression and plan of care have been directed as dictated. Ileana Zhang, Nurse Practitioner, acting as scribe for signing physician.
--- NOTE | 2017-10-03 10:49 | PN ---
PROGRESS NOTE Abhishek is admitted to hospital with non ST-segment elevation CT. Underwent cardiac catheterization and angioplasty of LAD and circumflex coronary artery. The patient has ischemic cardiomyopathy with an ejection fraction of 30% to 35% and has chronic atrial fibrillation with controlled ventricular rate. PHYSICAL EXAM: Today he is comfortable at rest. Vital signs are stable. There is no jugular venous distention. Chest exam reveals good air entry bilaterally. Heart exam reveals first and second heart sounds. No gallop. No murmur. Abdomen is soft, nontender. Exam of extremities did not reveal any edema. Peripheral pulses are felt. He has irregular rhythm. CURRENT MEDICATIONS: Include aspirin, Lipitor 80 mg daily, Plavix 75 mg daily, Lasix, Hyzaar, Lopressor 50 b.i.d., and Xarelto. ASSESSMENT: Non ST-segment elevation myocardial infarction, ischemic cardiomyopathy, chronic atrial fibrillation. PLAN: Patient is doing well. I talked to him about his medications, activities, limitations. He is stable to be discharged home and have outpatient follow up with Dr. Beaver. MERARI / JUAN RAMON: [id number] /
--- NOTE | 2017-10-03 14:02 | P.DS ---
Providers Date of admission: 09/30/17 06:03 Expected date of discharge: 10/03/17 Attending physician: Jerad Wiseman Consults: 09/30/17 06:03 Consult Physician Urgent Consulting Provider: Arjun Valladares Consult Reason/Comments: NSTEMI Do you want consulting provider notified?: Already Contacted 09/30/17 12:23 Consult Physician Routine Consulting Provider: [facility] Consult Reason/Comments: Post Interventional patient Do you want consulting provider notified?: Already Contacted Primary care physician: Jerad Wiseman [place] [facility] Course: 62-year-old male who originally presented to [facility] with a chief complaint of chest pain and was transferred to [facility] after evaluation. The patient states he ate 4 White Castles and then noticed that he was having pain to the left chest. He told the ER doctor the pain was aching, constant, moderate intensity. It was accompanied by some dyspnea, palpitations, and nausea. He took 2 aspirin. While at [facility] he was noted to be in atrial fibrillation with rapid ventricular rate, and he also had a minimally elevated troponin at 0.4. Subsequent troponins are 13.200 , 19.100, and 12.900. Patient underwent cardiac cath on 09/30/2017 with stent placement to the LAD and circumflex. The patient has remained stable since cardiac catheterization. He has not had any further episodes of chest pain. The patient has been up ambulating. He remains hemodynamically stable. He was cleared for discharge from a cardiac standpoint is to follow-up on an outpatient basis. Prescriptions were sent to the patient's preferred pharmacy for aspirin 81 mg daily, Lipitor 80 mg at night, Plavix 75 mg daily, Hyzaar 50- 12.5 2 tablets daily, metoprolol tartrate 50 mg by mouth twice a day, nitroglycerin sublingual tablets when necessary for chest pain, and Xarelto 20 mg by mouth with supper. His Cardizem and Coumadin were discontinued per cardiology. DISCHARGE DIAGNOSIS: Acute non-ST elevated myocardial infarction, s/p angioplasty and stent of the LAD and circumflex artery Chronic atrial fibrillation Ischemic cardiomyopathy with ejection fraction of 30-35% Hyperlipidemia Morbid obesity: BMI 40.6 Nurse practitioner note has been reviewed by physician. Signing provider agrees with the documented findings, assessment, and plan of care. Patient Condition at Discharge: Stable Plan - Discharge Summary Discharge Rx Participant: Yes New Discharge Prescriptions: New Aspirin 81 mg PO DAILY chew Atorvastatin [Lipitor] 80 mg PO HS #30 tab Clopidogrel [Plavix] 75 mg PO DAILY #30 tab Losartan-Hctz 50-12.5 mg [Hyzaar 50-12.5] 2 each PO DAILY #60 tab Metoprolol Tartrate [Lopressor] 50 mg PO BID #60 tab Nitroglycerin Sl Tabs [Nitrostat] 0.4 mg SUBLINGUAL Q5M PRN #25 tab PRN Reason: Chest Pain Rivaroxaban [Xarelto] 20 mg PO W/SUPPER #30 tab Continue Furosemide [Lasix] 40 mg PO DAILY Multivitamin [Men's Multi-Vitamin] 1 tab PO DAILY L.acidoph,Paracasei, B.lactis [Probiotic] 1 cap PO DAILY Tintah-3 Fatty Acids/Fish Oil [Fish Oil 1,000 mg Softgel] 4,000 mg PO DAILY Discontinued Warfarin [Coumadin] 5 mg PO SUTUFR Diltiazem HCl [Diltiazem ER] 360 mg PO DAILY Warfarin [Coumadin] 2.5 mg PO MOWETHSA Discharge Medication List Furosemide [Lasix] 40 mg PO DAILY 12/04/13 [History] Multivitamin [Men's Multi-Vitamin] 1 tab PO DAILY 12/04/13 [History] L.acidoph,Paracasei, B.lactis [Probiotic] 1 cap PO DAILY 09/30/17 [History] Tintah-3 Fatty Acids/Fish Oil [Fish Oil 1,000 mg Softgel] 4,000 mg PO DAILY 09/30 [History] Aspirin 81 mg PO DAILY chew 10/03/17 [Rx] Atorvastatin [Lipitor] 80 mg PO HS #30 tab 10/03/17 [Rx] Clopidogrel [Plavix] 75 mg PO DAILY #30 tab 10/03/17 [Rx] Losartan-Hctz 50-12.5 mg [Hyzaar 50-12.5] 2 each PO DAILY #60 tab 10/03/17 [Rx] Metoprolol Tartrate [Lopressor] 50 mg PO BID #60 tab 10/03/17 [Rx] Nitroglycerin Sl Tabs [Nitrostat] 0.4 mg SUBLINGUAL Q5M PRN #25 tab 10/03/17 [Rx ] Rivaroxaban [Xarelto] 20 mg PO W/SUPPER #30 tab 10/03/17 [Rx] Follow up Appointment(s)/Referral(s): Edwardo Beaver MD [STAFF PHYSICIAN] - 10/10/17 3:00 pm (Monday) Jerad Wiseman MD [Primary Care Provider] - 10/09/17 4:15 pm (Monday) Patient Instructions/Handouts: *Surgery [facility] - After Heart Catheterization - Representative Government Relations Instructions, Heart Healthy Diet (DC), Heart Catheterization (DC ) Activity/Diet/Wound Care/Special Instructions: First month of Xarelto is free and can be picked up from [facility] Do not return to work until you are seen by your primary care physician at your follow up appointment Discharge Disposition: HOME SELF-CARE
[2017-10-06] MEDS ORDERED: WARFARIN 5 MG TAB PO SCH (18:00)
--- NOTE | 2017-10-11 13:02 | P.PN ---
Progress Note - Text Progress Note Date: 10/11/17 This is an addendum to the cardiology progress note. Patient has congestive cardiac failure, systolic, acute on chronic. DNP note has been reviewed, I agree with a documented findings and plan of care. Patient was seen and examined.
== END 2017-10-03 13:14 | disposition home or self-care (01) | DRG 246 ==
LOC: EC 03:38 → 6SEL 06:03
PROVIDERS: ADMIT Family Medicine; ATTEND Family Medicine
PROC: 027035Z Dilation of Coronary Artery, One Artery with Two Drug-eluting Intraluminal Devices, Percutaneous Approach (ICD-10-PCS; principal; 2017-09-30 10:30)
PROC: B2111ZZ Fluoroscopy of Multiple Coronary Arteries using Low Osmolar Contrast (ICD-10-PCS; principal; 2017-09-30 10:30)
PROC: 4A023N7 Measurement of Cardiac Sampling and Pressure, Left Heart, Percutaneous Approach (ICD-10-PCS; principal; 2017-09-30 10:30)
DX: I21.4 Non-ST elevation (NSTEMI) myocardial infarction (principal); I50.23 Acute on chronic systolic (congestive) heart failure; E66.01 Morbid (severe) obesity due to excess calories; I48.1 Persistent atrial fibrillation; Z68.41 Body mass index [BMI] 40.0-44.9, adult; I11.9 Hypertensive heart disease without heart failure; E78.5 Hyperlipidemia, unspecified; G47.30 Sleep apnea, unspecified; I25.5 Ischemic cardiomyopathy; I48.2 Chronic atrial fibrillation; Z79.01 Long term (current) use of anticoagulants; Z79.02 Long term (current) use of antithrombotics/antiplatelets; Z79.82 Long term (current) use of aspirin; Z79.899 Other long term (current) drug therapy; Z82.49 Family history of ischemic heart disease and other diseases of the circulatory system; M19.90 Unspecified osteoarthritis, unspecified site
CPT/HCPCS: 36415; 80048; 80053; 80061; 82550; 82553; 83735; 84484; 85025; 85379; 85610; 85730; 93005; 93306; 93458; 99291

== ENCOUNTER → 2019-01-28 | Outpatient (CLI) | payer BC ==
--- NOTE | 2019-01-28 17:34 | XR ---
EXAMINATION TYPE: XR chest 2V DATE OF EXAM: 01/28/2019 COMPARISON: Prior chest x-ray 09/29/2017 HISTORY: Acute bronchitis TECHNIQUE: Frontal and lateral views of the chest are obtained. FINDINGS: The heart remains enlarged. There is no evident airspace disease, pneumothorax, or pleural effusion. Bones are stable. There is bronchial wall thickening. IMPRESSION: Correlate for bronchitis and follow-up as indicated. Stable cardiomegaly. IMPRESSION: No acute cardiopulmonary process.
== END | disposition home or self-care (01) ==
LOC: RADXRMAIN 09:16
PROVIDERS: ATTEND Nurse Practitioner Family
DX: J20.9 Acute bronchitis, unspecified (principal)
CPT/HCPCS: 71046

== ENCOUNTER → 2019-03-07 | Outpatient (CLI) | payer BC ==
--- NOTE | 2019-03-07 10:41 | XR ---
EXAMINATION TYPE: XR chest 2V DATE OF EXAM: 03/07/2019 COMPARISON: 01/28/2019 TECHNIQUE: PA and lateral views submitted. HISTORY: Cough FINDINGS: Heart is enlarged and there is biapical pleural thickening. No overt failure. No pleural effusion. Hy pertrophic change of the spine. No consolidative pneumonia. IMPRESSION: 1. Cardiomegaly
== END | disposition home or self-care (01) ==
LOC: RADXRMAIN 09:07
PROVIDERS: ATTEND Nurse Practitioner Family
DX: I51.7 Cardiomegaly (principal)
CPT/HCPCS: 71046

== ENCOUNTER → 2020-03-13 | Outpatient (CLI) | payer BC ==
[2020-03-13 14:19] LABS: INR 1.1 (<1.2); Prothrombin Time 11.2 sec (9.0-12.0)
[2020-03-13 14:21] LABS: Basophils # (A) 0.1 k/uL (0-0.2); Basophils % (A) 1 %; Eosinophils # (A) 0.2 k/uL (0-0.7); Eosinophils % (A) 2 %; HCT 43.6 % (39.0-53.0); HGB 14.2 gm/dL (13.0-17.5); Lymphocytes # (A) 1.7 k/uL (1.0-4.8); Lymphocytes % (A) 19 %; MCHC 32.5 g/dL (31.0-37.0); MCV 86.2 fL (80.0-100.0); Mean Platelet Volume 7.1; Monocytes # (A) 0.6 k/uL (0-1.0); Monocytes % (A) 7 %; Neutrophils # (A) 5.8 k/uL (1.3-7.7); Neutrophils % (A) 66 %; Platelet Count 276 k/uL (150-450); Potassium 4.5 mmol/L (3.5-5.1); RBC 5.06 m/uL (4.30-5.90); RDW 14.1 % (11.5-15.5); WBC 8.9 k/uL (3.8-10.6)
== END | disposition home or self-care (01) ==
LOC: LABPAT 12:04
PROVIDERS: ATTEND Orthopaedic Surgery
DX: Z01.810 Encounter for preprocedural cardiovascular examination (principal); I48.91 Unspecified atrial fibrillation; Z01.812 Encounter for preprocedural laboratory examination
CPT/HCPCS: 80051; 85025; 85610; 87070

== ENCOUNTER 2020-03-23 05:58 | Day surgery (SDC) | payer BC ==
[2020-03-17 10:54] VITALS: BMI 40.6
--- NOTE | 2020-03-22 11:41 | HP ---
HISTORY AND PHYSICAL REASON FOR ADMISSION: Surgery is scheduled for 03/23/2020 HISTORY OF PRESENT ILLNESS: Abhishek Augustin is a 63-year-old patient seen with progressive left knee pain consistent with symptomatic advanced osteoarthritis. We discussed options. He elected to proceed with total knee arthroplasty. Consent regarding the procedure was obtained. Medical clearance was provided as well as cardiac clearance by Dr. Beaver. PAST MEDICAL HISTORY: Hypertension, hyperlipidemia. PAST SURGICAL HISTORY: Left knee arthroscopy. MEDICATIONS: Lipitor, losartan, Xarelto, Lasix, Lopressor. ALLERGIES: None. SOCIAL HISTORY: He denies current tobacco use. PHYSICAL EXAMINATION: Evaluation of the left knee, his range of motion is -2 to 125. Tenderness medial joint line. Crepitus along the medial and patellofemoral compartments range of motion. Pain with patellofemoral compression. Ligaments stable. Hip rotation without pain. Distal neurovascular exam intact. RADIOGRAPHS: Radiographs of the left knee reveal severe osteoarthritic changes. IMPRESSION: 1. Left knee osteoarthritis. 2. Hypertension. 3. Hyperlipidemia. PLAN: Left total knee arthroplasty. Surgery scheduled for 03/23/2020. MMODL / IJN: [id number] /
[~2020-03-23 05:58] MED LIST: ACETAMINOPHEN TAB 500 MG TAB PO ONE; MELOXICAM 7.5 MG TAB PO ONE; TRANEXAMIC ACID 1,000 MG in SODIUM CHLORIDE 0.9% 100 ML IVPB ONE; VANCOMYCIN 2,000 MG in SODIUM CHLORIDE 0.9% 500 ML 500 ML IVPB ONE
[2020-03-23] MEDS ORDERED: ROPIVACAINE 246.25 MG, EPINEPHrine 0.5 MG, KETOROLAC 30 MG, cloNIDine HCL/PF 80 MCG, WA... MISCELLANE ONE ×5 (06:00)
[2020-03-23] MEDS ORDERED: DEXAMETHASONE SOD PHOSPHATE 10 MG/ML 1 ML VIAL IV ONE (06:00)
[2020-03-23] MEDS ORDERED: HYDROmorphone 0.5 MG/0.5 ML SYRINGE IVP PRN ×3 (06:00→09:20)
[2020-03-23] MEDS ORDERED: ONDANSETRON 4 MG/2 ML VIAL IVP ONE (06:00)
[2020-03-23] MEDS ORDERED: MIDAZOLAM 2 MG/2 ML VIAL IV PRN (06:00)
[2020-03-23] MEDS ORDERED: LACTATED RINGERS 1,000 ML IV SCH (06:00)
[2020-03-23] MEDS ORDERED: LIDOCAINE 1% (10MG/ML) FOR IV START INTRADERMA ONE (06:41)
[2020-03-23] MEDS ORDERED: PHENYLEPHRINE-0.9% NACL SYG 1 MG/10 ML SYRINGE ONE (07:25)
[2020-03-23] MEDS ORDERED: SUCCINYLCHOLINE CHLORIDE 100 MG/5 ML SYR IV ONE (07:25)
[2020-03-23] MEDS ORDERED: MIDAZOLAM 2 MG/2 ML VIAL ONE (07:25)
[2020-03-23] MEDS ORDERED: HYDROmorphone (PF) 1 MG/ML ONE (07:25)
[2020-03-23] MEDS ORDERED: NEOSTIGMINE 1 MG/ML 10 ML VIAL ONE (07:25)
[2020-03-23] MEDS ORDERED: GLYCOPYRROLATE 0.2 MG/ML 2 ML VIAL ONE (07:25)
[2020-03-23] MEDS ORDERED: SODIUM CHLORIDE 0.9% 100 ML BAG ONE (07:25)
[2020-03-23] MEDS ORDERED: LIDOCAINE 1% INJ 10MG/ML (20 ML MDV) ONE (07:25)
[2020-03-23] MEDS ORDERED: TRANEXAMIC ACID 1,000 MG/10 ML VIAL ONE (07:25)
[2020-03-23] MEDS ORDERED: fentaNYL (PF) 50 MCG/ML 2 ML AMP ONE (07:25)
[2020-03-23] MEDS ORDERED: ROCURONIUM BROMIDE 10 MG/ML 5 ML VIAL IV ONE (07:25)
[2020-03-23] MEDS ORDERED: PROPOFOL 10 MG/ML 20 ML VIAL IV ONE (07:25)
[2020-03-23] MEDS ORDERED: ceFAZolin 3,000 MG in SODIUM CHLORIDE 0.9% IRRIGATIO 3,000 ML IRRIGATION ONE (08:03)
[2020-03-23] MEDS ORDERED: LACTATED RINGERS 1,000 ML IV ONE ×3 (08:12→10:18)
[2020-03-23] MEDS ORDERED: NALOXONE 0.4 MG/ML 1 ML VIAL IV PRN (09:20)
[2020-03-23] MEDS ORDERED: ONDANSETRON 4 MG/2 ML VIAL IVP PRN (09:20)
[2020-03-23] MEDS ORDERED: HYDROcodone/APAP 5-325MG 1 EACH TAB PO PRN ×2 (09:20)
[2020-03-23] MEDS ORDERED: HYDROmorphone 1 MG/ML 1 ML SYRINGE IVP PRN (09:20)
--- NOTE | 2020-03-23 09:20 | P.OP ---
Date of Procedure: 03/23/20 Preoperative Diagnosis: Left knee osteoarthritis Postoperative Diagnosis: Left knee osteoarthritis Procedure(s) Performed: Left total knee arthroplasty Implants: 1. Depuy attune size 7 left cruciate retaining cemented femur 2. Depuy attune size 7 fixed bearing cemented tibial baseplate 3. Depuy attune size 7 fixed bearing cruciate retaining 8 mm polyethylene tibial insert 4. Depuy attune 41 mm all polyethylene cemented patella Anesthesia: GETA, regional (Adductor canal catheter), local Surgeon: Jaya Rick Audit Control Clerk #1: Dev Pfeiffer Estimated Blood Loss (ml): 40 Pathology: other (Bone) Condition: stable Disposition: PACU Indications for Procedure: 64-year-old patient seen with progressive symptomatic left knee osteoarthritis. After treatment options were discussed, he elected to proceed with total knee arthroplasty Operative Findings: see description of procedure Description of Procedure: Patient was taken to the operative suite after having an adductor canal catheter placed by the department of anesthesia. Patient underwent a general anesthetic by the department of anesthesia. Patient was given preoperative IV intake antibiotics and TXA. A well-padded tourniquet was placed about the left lower extremity. The lower extremity was then prepped and draped in the normal sterile orthopedic fashion. The extremity was elevated, a tourniquet was insufflated to 300. A standard anterior incision was made sharply through skin. Dissection was taken down through the subcutaneous soft tissues down to the extensor mechanism. A medial arthrotomy was performed, patella was everted and knee was flexed. There was advanced osteoarthritis noted. I introduced my distal intramedullary femoral drill. I then introduced the distal femoral cutting jig. Jose MELTON secured the cutting jig with 2 pins. I held retractors in position while Jose MELTON performed the distal femoral resection through the guide area we now removed her distal femoral cutting guide. We now placed our 4-in-1 femoral cutting block and positioned and it was secured with 2 pins by Jose MELTON while I held the block in position. The distal femoral finishing was now completed. A proximal tibial cutting guide was positioned. I held the guide in the appropriate position with both hands well Jose MELTON inserted stabilizing pins into the guide. Proximal tibial cut was made. We now placed a trial femoral component into position, along with an appropriate size tibial tray and insert. We now took the knee through range of motion and had full extension good flexion and good overall soft tissue balance noted. The patella was everted and stabilized with 2 towel clips held by Jose MELTON while I performed a flush with patellar quad tendon utilizing a fresh sawblade. We templated the patella, appropriate drill holes were made. An appropriate trial patella was positioned, knee was taken through full range of motion with the patella tracking very nicely. The trial patella was removed. Drill holes were made through the femoral component. All trial components were removed after marking off the appropriate rotation of the tibia. Retractors were now positioned along the proximal tibia. An appropriate keel punch was made with the appropriate size tibial guide by myself on Jose MELTON assisted by holding retractors. At this point appropriate size implants were chosen and opened. The joint was irrigated copiously with pulse lavage mechanical irrigation. The posterior capsule was infiltrated with local analgesic. The wound was irrigated with pulse lavage mechanical irrigation. We mixed antibiotic methylmethacrylate. We placed the knee into flexion. We placed multiple retractors assisted by Jose MELTON to expose the proximal tibia. Once the methyl methacrylate was ready, the tibial component was cemented into place removing any excess methylmethacrylate form by both myself and Jose MELTON. The femoral component was cemented into place removing the removing any excess methylmethacrylate performed by both myself and Jose MELTON. We then inserted the appropriate size polyethylene tibial insert. We made sure that it was locked into position. We took the knee into full extension, and then back in a flexion making sure we had removed any excess methylmethacrylate. The patellar component was then cemented down and secured with clamp. Excess methylmethacrylate removed. We kept the knee in full extension, patellar clamp in position until methylmethacrylate had hardened. Once it had hardened the yee telljabier clamp was removed. The knee was taken through full range of motion. The patella tracked nicely. There was good soft tissue balancing. The tourniquet was now released. Additional hemostasis was achieved via electrocautery. A second gram of TXA was given. The wound again was irrigated with pulse lavage mechanical irrigation. The superficial soft tissues were infiltrated local analgesic. The extensor mechanism was repaired with Vicryl. We checked the repair with range of motion and it was stable. The subcutaneous soft tissues were repaired with Vicryl in layers. The skin was approximated with pernio/Dermabond. Sterile dressings were applied followed by loose web roll and Eddy bandage. The patient was transferred to a bed, and taken to recovery in stable and satisfactory condition. Jose MELTON assisted with this complex procedure.
[2020-03-23] MEDS ORDERED: ROPIVACAINE 0.2%-NS ON-Q PUMP 1,090 MG, EMPTY PAIN BALL 1 EACH MISCELLANE PRN (09:44)
--- NOTE | 2020-03-23 09:51 | P.ANPRN ---
Procedure Note - Anesthesia - Nerve Block Performed Left Adductor Canal Infusion Time Out Performed: Yes Date of Procedure: 03/23/20 Procedure Start Time: 06:49 Procedure Stop Time: 07:00 Location of Patient: PreOp Indication: Acute Post-Operative Pain, Requested by Surgeon Sedation Type: Sedate with meaningful contact maintained Preparation: Sterile Prep, Sterile Dressing Position: Supine Catheter: Indwelling Needle Types: Pajunk Needle Gauge: 21 Ultrasound used to visualize needle placement: Yes Ultrasound used to observe medication spread: Yes Blood Aspirated: No Pain Paresthesia on Injection Noted: No Resistance on Injection: Normal Image Stored and Saved: Yes Events: Uneventful and Well Tolerated (ropi .5% 20cc plus dexamethasone 4mg)
[2020-03-23 09:53] VITALS: TEMP 96.8
--- NOTE | 2020-03-23 10:22 | XR ---
EXAMINATION TYPE: XR knee limited LT DATE OF EXAM: 03/23/2020 CLINICAL HISTORY: Left knee pain and arthritis status post total knee replacement. TECHNIQUE: Portable AP and crosstable lateral views of the left knee are obtained immediately postop eratively. COMPARISON: None FINDINGS: Metallic hardware from total left knee arthroplasty is seen and appears satisfactory in al ignment and position. There is evidence of recent surgery with diffuse subcutaneous and cutaneous ir regularity. No unexpected radiopaque foreign body. IMPRESSION: METALLIC HARDWARE FROM TOTAL LEFT KNEE ARTHROPLASTY IS SATISFACTORY IN ALIGNMENT.
[2020-03-23 13:07] VITALS: RESP 20
[2020-03-23 15:32] VITALS: BP 112/70; PULSE 80
[2020-03-23] MEDS ORDERED: VANCOMYCIN 2,000 MG in SODIUM CHLORIDE 0.9% 500 ML 500 ML IVPB ONE (18:00)
== END 2020-03-23 16:07 | disposition home health service (06) ==
LOC: OR 05:58
PROVIDERS: ATTEND Orthopaedic Surgery
DX: M17.12 Unilateral primary osteoarthritis, left knee (principal); I10 Essential (primary) hypertension; E78.5 Hyperlipidemia, unspecified; I48.19 Other persistent atrial fibrillation; I25.10 Atherosclerotic heart disease of native coronary artery without angina pectoris; Z95.5 Presence of coronary angioplasty implant and graft; G47.33 Obstructive sleep apnea (adult) (pediatric); E66.9 Obesity, unspecified; Z68.41 Body mass index [BMI] 40.0-44.9, adult; Z82.49 Family history of ischemic heart disease and other diseases of the circulatory system; Z79.82 Long term (current) use of aspirin; Z79.01 Long term (current) use of anticoagulants; Z79.899 Other long term (current) drug therapy
CPT/HCPCS: 27447; 97110; 97161; 64448; 76942; 88300; 73560; C1776; C1713; J2250; J0171; J3370; J1100; J2710; J2405; J0690; J2001; J3010; J1885; J1170; J2795 ×2; J2370; J0330; J2704; J0735

== ENCOUNTER → 2021-05-11 | Outpatient (CLI) | payer BC ==
--- NOTE | 2021-05-12 13:31 | P.ARTDOP ---
Arterial Doppler LOWER EXTREMITY ARTERIAL DOPPLER: DATE OF SERVICE: 05/11/2021 Reason for study: Leg discoloration. Doppler waveforms: Multiphasic bilaterally throughout with good toe waveforms. Pulse volume recording: []. Pressure gradients: None. Ankle-brachial indices: Greater than 1 bilaterally. Toe brachial indices: 0.7 to on the right, 0.66 on the left Impression: Normal study.
== END | disposition home or self-care (01) ==
LOC: RADUSWWP 11:56
PROVIDERS: ATTEND Family Medicine
DX: I73.9 Peripheral vascular disease, unspecified (principal)
CPT/HCPCS: 93922

== ENCOUNTER → 2022-01-31 | Outpatient (CLI) | payer BC ==
[2022-01-31 15:13] LABS: INR 1.35 (0.90-1.11); Prothrombin Time 14.6 sec (9.9-11.9)
[2022-01-31 15:38] LABS: Basophils # (A) 0.06 X 10*3/uL (0.00-0.10); Basophils % (A) 0.9 %; Eosinophils # (A) 0.17 X 10*3/uL (0.04-0.35); Eosinophils % (A) 2.6 %; HCT 47.2 % (39.6-50.0); HGB 14.9 g/dL (13.0-17.0); Immature Grans, Automated 0.5 %; Lymphocytes % (A) 22.7 %; MCH 28.1 pg (27.0-32.0); MCHC 31.6 g/dL (32.0-37.0); MCV 88.9 fL (80.0-97.0); Mean Platelet Volume 10.7 fL (9.5-12.2); Monocytes # (A) 0.75 X 10*3/uL (0.20-1.00); Monocytes % (A) 11.3 %; NRBC Per 100 WBC 0 /100 WBCS (0.0-0.0); Neutrophils # (A) 4.11 X 10*3/uL (1.80-7.70); Platelet Count 286 X 10*3/uL (140-440); RBC 5.31 X 10*6/uL (4.40-5.60); RDW 13.5 % (11.5-14.5); WBC 6.62 X 10*3/uL (4.50-10.00)
[2022-01-31 15:49] LABS: African American GFR (CKD) 81.2 (60.0-200.0); Albumin 4.2 g/dL (3.8-4.9); Albumin/Globulin Ratio 0.86 (1.60-3.17); Anion Gap 11.4 mmol/L (10.00-18.00); BUN/Creat Ratio 8.64 Ratio (12.00-20.00); Blood Urea Nitrogen 9.5 mg/dL (9.0-27.0); Carbon Dioxide 24.6 mmol/L (20.0-27.5); Globulin 4.9 g/dL (1.6-3.3); Non-African American GFR(CKD) 70.1 (60.0-200.0); Potassium 4.8 mmol/L (3.5-5.5); Total Bilirubin 0.7 mg/dL (0.30-1.20); Total Protein 9.1 g/dL (6.2-8.2)
== END | disposition home or self-care (01) ==
LOC: LABPAT 08:49
PROVIDERS: ATTEND Orthopaedic Surgery
DX: Z01.818 Encounter for other preprocedural examination (principal); Z22.322 Carrier or suspected carrier of Methicillin resistant Staphylococcus aureus; M17.11 Unilateral primary osteoarthritis, right knee; I48.0 Paroxysmal atrial fibrillation; Z79.01 Long term (current) use of anticoagulants
CPT/HCPCS: 80053; 85025; 85610; 87070

== ENCOUNTER → 2022-02-07 | Day surgery (SDC) | payer BC ==
[2022-02-01 12:54] VITALS: BMI 38.2
--- NOTE | 2022-02-06 10:29 | HP ---
HISTORY AND PHYSICAL DATE OF SURGERY: 02/07/2022 Abhishek Augustin is a 66-year-old patient seen with symptomatic right knee osteoarthritis. We discussed options for treatment. He elected to proceed with right total knee arthroplasty. Consent was obtained. Medical and cardiac clearances were obtained. PAST MEDICAL HISTORY: Atrial fibrillation, hypertension. PAST SURGICAL HISTORY: Left total knee arthroplasty, cardiac catheterization with stent insertion. DAILY MEDICATIONS: Lipitor, losartan, Xarelto, Lasix. ALLERGIES: NONE. SOCIAL HISTORY: He denies tobacco use. PHYSICAL EVALUATION OF THE RIGHT KNEE: Range of motion is negative 1/2 to 125. Mild effusion. Tenderness, medial joint line. Crepitus, medial and patellofemoral compartments with range of motion. Pain with patellofemoral compression. Ligaments stable. Hip rotation without pain. Distal neurovascular exam is intact. Right knee radiographs reveal severe osteoarthritic changes of the right knee. IMPRESSION: 1. Right knee osteoarthritis. 2. Hypertension. 3. Hyperlipidemia. 4. Atrial fibrillation. PLAN: Right total knee arthroplasty. MMODL / IJN: [id number] /
[~2022-02-07] MED LIST changes: -ACETAMINOPHEN TAB 500 MG TAB PO ONE; +ACETAMINOPHEN TAB 500 MG TAB PO PRN; +GLYCOPYRROLATE 0.2 MG/ML 2 ML VIAL ONE; +HYDROcodone/APAP 5-325MG 1 EACH TAB PO PRN; +HYDROmorphone (PF) 1 MG/ML ONE; +HYDROmorphone 0.5 MG/0.5 ML SYRINGE IVP PRN; +HYDROmorphone 1 MG/ML 1 ML SYRINGE IVP PRN; +LACTATED RINGERS 1,000 ML IV ONE; +LACTATED RINGERS 1,000 ML IV SCH; +LIDOCAINE 1% (10MG/ML) FOR IV START INTRADERMA PRN; +LIDOCAINE 2% INJ 20 MG/ML (2 ML VIAL) ONE; -MELOXICAM 7.5 MG TAB PO ONE; +MELOXICAM 7.5 MG TAB PO PRN; +MIDAZOLAM 2 MG/2 ML VIAL IV ONE; +NALOXONE 0.4 MG/ML 1 ML VIAL IV PRN; +NEOSTIGMINE 1 MG/ML 10 ML VIAL ONE; +ONDANSETRON 4 MG/2 ML VIAL IVP ONE; +ONDANSETRON 4 MG/2 ML VIAL IVP PRN; +PHENYLEPHRINE-0.9% NACL SYG 1,000 MCG/10 ML SYRINGE ONE; +PROPOFOL 10 MG/ML 20 ML VIAL IV ONE; +ROCURONIUM 10 MG/ML (5 ML VIAL) IV ONE; +ROPIVACAINE 0.2%-NS ON-Q PUMP 2 MG/ML EACH MISCELLANE ONE; +ROPIVACAINE 5 MG/ML 30 ML VIAL ONE; +SODIUM CHLORIDE 0.9% (PF) 10 ML VIAL ONE; +SUCCINYLCHOLINE CHLORIDE 200 MG/10 ML VIAL IV ONE; -TRANEXAMIC ACID 1,000 MG in SODIUM CHLORIDE 0.9% 100 ML IVPB ONE; +TRANEXAMIC ACID IN NACL,ISO-OS 1,000 MG in SALINE 1 100ML.BAG IVPB PRN; -VANCOMYCIN 2,000 MG in SODIUM CHLORIDE 0.9% 500 ML 500 ML IVPB ONE; +VANCOMYCIN 2,000 MG in SODIUM CHLORIDE 0.9% 500 ML 500 ML IVPB PRN; +ceFAZolin 1,000 MG in SODIUM CHLORIDE 0.9% 1,000 ML IRRIGATION ONE; +ceFAZolin 3 GM in SODIUM CHLORIDE 0.9% 100 ML IVPB PRN; +ePHEDrine 50 MG/ML 1 ML VIAL ONE; +fentaNYL (PF) 50 MCG/ML 2 ML AMP IV ONE; +fentaNYL (PF) 50 MCG/ML 2 ML AMP ONE
--- NOTE | 2022-02-07 11:00 | P.ANPRN ---
Procedure Note - Anesthesia - Nerve Block Performed Right Adductor Canal Infusion Time Out Performed: Yes (0943) Date of Procedure: 02/07/22 Procedure Start Time: 09:44 Procedure Stop Time: 09:49 Location of Patient: PreOp Indication: Acute Post-Operative Pain, Requested by Surgeon Specifically requested for management of pain by DrTico: Jaya Rick Sedation Type: Sedate with meaningful contact maintained Preparation: Sterile Prep, Sterile Dressing Position: Supine Catheter Depth at Skin (cm): 9 Catheter: Indwelling Needle Types: Pajunk Needle Gauge: 18 Ultrasound used to visualize needle placement: Yes Ultrasound used to observe medication spread: Yes Injectate: 0.5% Ropivacaine (see comment for volume) (15cc + 10cc nacl pf) Blood Aspirated: No Pain Paresthesia on Injection Noted: No Resistance on Injection: Normal Image Stored and Saved: Yes Events: Uneventful and Well Tolerated
--- NOTE | 2022-02-07 11:01 | P.ANPRN ---
Procedure Note - Anesthesia - Nerve Block Performed Right iPack Single Time Out Performed: Yes (0943) Date of Procedure: 02/07/22 Procedure Start Time: 09:50 Procedure Stop Time: 09:55 Location of Patient: PreOp Indication: Acute Post-Operative Pain, Requested by Surgeon Specifically requested for management of pain by DrTico: Jaya Rick Sedation Type: Sedate with meaningful contact maintained Preparation: Sterile Prep Position: Supine Catheter: None Needle Types: Pajunk Needle Gauge: 21 Ultrasound used to visualize needle placement: Yes Ultrasound used to observe medication spread: Yes Injectate: 0.5% Ropivacaine (see comment for volume) (15cc + 10cc nacl pf) Blood Aspirated: No Pain Paresthesia on Injection Noted: No Resistance on Injection: Normal Image Stored and Saved: Yes Events: Uneventful and Well Tolerated
--- NOTE | 2022-02-07 11:39 | P.OP ---
Date of Procedure: 02/07/22 Preoperative Diagnosis: Right knee osteoarthritis Postoperative Diagnosis: Right knee osteoarthritis Procedure(s) Performed: Right total knee arthroplasty Implants: 1. Depuy attune size 7 right cruciate-retaining cemented femur 2. Depuy attune size 7 fixed bearing cemented tibial baseplate 3. Depuy attune size 7 fixed bearing cruciate retaining 10 mm polyethylene tibial insert 4. Depuy attune 41 mm all polyethylene cemented patella Anesthesia: GETA, regional (Adductor canal catheter, Ipack block) Surgeon: Jaya Rick Plate Hanger #1: Dev Pfeiffer Estimated Blood Loss (ml): 40 Pathology: other (Bone) Condition: stable Disposition: PACU Indications for Procedure: 66-year-old patient seen with symptomatic right knee osteoarthritis. After treatment options were discussed, he elected to proceed with total knee arthroplasty. Operative Findings: See description of procedure Description of Procedure: Patient was taken to the operative suite after having an adductor canal catheter placed by the department of anesthesia after having an Ipack block performed by the department of anesthesia for postoperative pain management . Patient underwent a general anesthetic by the department of anesthesia. Patient was given preoperative IV intake antibiotics and TXA. A well-padded tourniquet was placed about the right lower extremity. The lower extremity was then prepped and draped in the normal sterile orthopedic fashion. The extremity was elevated, a tourniquet was insufflated to 300. A standard anterior incision was made sharply through skin. Dissection was taken down through the subcutaneous soft tissues down to the extensor mechanism. A medial arthrotomy was performed, patella was everted and knee was flexed. There was advanced osteoarthritis noted. I introduced my distal intramedullary femoral drill. I then introduced the distal femoral cutting jig. Jose MELTON secured the cutting jig with 2 pins. I held retractors in position while Jose MELTON performed the distal femoral resection through the guide area we now removed her distal femoral cutting guide. We now placed our 4-in-1 femoral cutting block and positioned and it was secured with 2 pins by Jose MELTON while I held the block in position. The distal femoral finishing was now completed. A proximal tibial cutting guide was positioned. I held the guide in the appropriate position with both hands well Jose MELTON inserted stabilizing pins into the guide. Proximal tibial cut was made. We now placed a trial femoral component into position, along with an appropriate size tibial tray and insert. We now took the knee through range of motion and had full extension good flexion and good overall soft tissue balance noted. The patella was everted and stabilized with 2 towel clips held by Jose MELTON while I performed a flush with patellar quad tendon utilizing a fresh sawblade. We templated the patella, appropriate drill holes were made. An appropriate trial patella was positioned, knee was taken through full range of motion with the patella tracking very nicely. The trial patella was removed. Drill holes were made through the femoral component. All trial components were removed after marking off the appropriate rotation of the tibia. Retractors were now positioned along the proximal tibia. An appropriate keel punch was made with the appropriate size tibial guide by myself on Jose MELTON assisted by holding retractors. At this point appropriate size implants were chosen and opened. The joint was irrigated copiously with pulse lavage mechanical irrigation. The posterior capsule was infiltrated with local analgesic. The wound was irrigated with pulse lavage mechanical irrigation. We mixed antibiotic methylmethacrylate. We placed the knee into flexion. We placed multiple retractors assisted by Jose MELTON to expose the proximal tibia. Once the methyl methacrylate was ready, the tibial component was cemented into place removing any excess methylmethacrylate form by both myself and Jose MELTON. The femoral component was cemented into place removing the removing any excess methylmethacrylate performed by both myself and Jose MELTON. We then inserted the appropriate size polyethylene tibial insert. We made sure that it was locked into position. We took the knee into full extension, and then back in a flexion making sure we had removed any excess methylmethacrylate. The patellar component was then cemented down and secured with clamp. Excess methylmethacrylate removed. We kept the knee in full extension, patellar clamp in position until methylmethacrylate had hardened. Once it had hardened the patellar clamp was removed. The knee was taken through full range of motion. The patella tracked nicely. There was good soft tissue balancing. The tourniquet was now released. Additional hemostasis was achieved via electrocautery. A second gram of TXA was given. The wound again was irr igated with pulse lavage mechanical irrigation. The superficial soft tissues were infiltrated local analgesic. The extensor mechanism was repaired with Ethibond suture. We checked the repair with range of motion and it was stable. The subcutaneous soft tissues were repaired with Vicryl in layers. The skin was approximated with pernio/Dermabond. Sterile dressings were applied followed by loose web roll and Eddy bandage. The patient was transferred to a bed, and taken to recovery in stable and satisfactory condition. Jsoe MELTON assisted with this complex procedure.
[2022-02-07 12:13] VITALS: RESP 16; TEMP 96.7
--- NOTE | 2022-02-07 12:59 | XR ---
EXAMINATION TYPE: XR knee limited RT DATE OF EXAM: 02/07/2022 COMPARISON: Outside radiograph 12/07/2021 HISTORY: 66-year-old male evaluation for postoperative abnormality in alignment TECHNIQUE: 2 views FINDINGS: Images show placement of right total knee arthroplasty. Both distal femoral and proximal tibial compo nents of the prosthesis are well seated without periprosthetic fracture. Alignment grossly anatomic. Anterior soft tissue swelling with scattered soft tissue air as well as intra-articular air related t o recent operation. Vascular calcifications noted. IMPRESSION: Uncomplicated postoperative appearance right total knee arthroplasty.
[2022-02-07] MEDS: HYDROcodone/APAP 7.5-325MG 1 EACH TAB PO PRN ×2 (14:18→15:40)
[2022-02-07 16:00] VITALS: BP 102/59; PULSE 105
== END | disposition home health service (06) ==
LOC: OR 08:06
PROVIDERS: ATTEND Orthopaedic Surgery
DX: M17.11 Unilateral primary osteoarthritis, right knee (principal); I48.91 Unspecified atrial fibrillation; I10 Essential (primary) hypertension; E78.5 Hyperlipidemia, unspecified; I25.2 Old myocardial infarction; G47.33 Obstructive sleep apnea (adult) (pediatric); J44.9 Chronic obstructive pulmonary disease, unspecified; Z96.652 Presence of left artificial knee joint; Z95.5 Presence of coronary angioplasty implant and graft; Z79.01 Long term (current) use of anticoagulants; Z79.899 Other long term (current) drug therapy
CPT/HCPCS: 27447; 97110; 97161; 64999; 64448; 76942; 88300; 73560; C1776; C1713; J2250; J3370; J0330; J2710; J2405; J0690; J3010; J1170; J2795 ×2; J2370; J2704; J2001

== ENCOUNTER → 2023-03-14 | Outpatient (CLI) | payer MEDICARE, BC ==
--- NOTE | 2023-03-14 11:45 | XR ---
EXAM TYPE: LUMBAR SPINE X RAY SERIES COMPARISON: NONE HISTORY: Obtained TECHNIQUE: 3 views are submitted. FINDINGS: Alignment is anatomic. The pedicles are intact. The transverse processes are intact. There is mult ilevel moderate to severe hypertrophic and degenerative disc disease. Multilevel facet arthropathy an d anterior spurring. Retrolisthesis of L2 relative to L3. Vacuum disc noted at multiple levels. IMPRESSION: 1. No multilevel moderate to severe hypertrophic and degenerative disc disease. Suspect foraminal pro trusion and L4-5 and L5-S1 recommend follow-up MRI.
== END | disposition home or self-care (01) ==
LOC: RADXRMAIN 11:13
PROVIDERS: ATTEND Family Medicine
DX: M47.816 Spondylosis without myelopathy or radiculopathy, lumbar region (principal); M51.36 Other intervertebral disc degeneration, lumbar region
CPT/HCPCS: 72100

== ENCOUNTER 2024-06-04 10:52 | Day surgery (SDC) | payer BC, MEDICARE ==
[2024-05-31 12:32] VITALS: BMI 37.5
[~2024-06-04 10:52] MED LIST changes: -ACETAMINOPHEN TAB 500 MG TAB PO PRN; -GLYCOPYRROLATE 0.2 MG/ML 2 ML VIAL ONE; -HYDROcodone/APAP 5-325MG 1 EACH TAB PO PRN; -HYDROmorphone (PF) 1 MG/ML ONE; -HYDROmorphone 0.5 MG/0.5 ML SYRINGE IVP PRN; -HYDROmorphone 1 MG/ML 1 ML SYRINGE IVP PRN; -LACTATED RINGERS 1,000 ML IV ONE; -LACTATED RINGERS 1,000 ML IV SCH; -LIDOCAINE 2% INJ 20 MG/ML (2 ML VIAL) ONE; -MELOXICAM 7.5 MG TAB PO PRN; -MIDAZOLAM 2 MG/2 ML VIAL IV ONE; -NALOXONE 0.4 MG/ML 1 ML VIAL IV PRN; -NEOSTIGMINE 1 MG/ML 10 ML VIAL ONE; -ONDANSETRON 4 MG/2 ML VIAL IVP ONE; -ONDANSETRON 4 MG/2 ML VIAL IVP PRN; -PHENYLEPHRINE-0.9% NACL SYG 1,000 MCG/10 ML SYRINGE ONE; -PROPOFOL 10 MG/ML 20 ML VIAL IV ONE; -ROCURONIUM 10 MG/ML (5 ML VIAL) IV ONE; -ROPIVACAINE 0.2%-NS ON-Q PUMP 2 MG/ML EACH MISCELLANE ONE; -ROPIVACAINE 5 MG/ML 30 ML VIAL ONE; -SODIUM CHLORIDE 0.9% (PF) 10 ML VIAL ONE; -SUCCINYLCHOLINE CHLORIDE 200 MG/10 ML VIAL IV ONE; -TRANEXAMIC ACID IN NACL,ISO-OS 1,000 MG in SALINE 1 100ML.BAG IVPB PRN; -VANCOMYCIN 2,000 MG in SODIUM CHLORIDE 0.9% 500 ML 500 ML IVPB PRN; -ceFAZolin 1,000 MG in SODIUM CHLORIDE 0.9% 1,000 ML IRRIGATION ONE; -ceFAZolin 3 GM in SODIUM CHLORIDE 0.9% 100 ML IVPB PRN; -ePHEDrine 50 MG/ML 1 ML VIAL ONE; -fentaNYL (PF) 50 MCG/ML 2 ML AMP IV ONE; -fentaNYL (PF) 50 MCG/ML 2 ML AMP ONE
[2024-06-04 11:24] VITALS: TEMP 97.1
[2024-06-04] MEDS: LACTATED RINGERS 1,000 ML IV SCH (11:35)
[2024-06-04] MEDS: IV FLUID CONTINUATION 1,000 ML IV ONE (11:35)
[2024-06-04] MEDS ORDERED: LIDOCAINE 1% INJ 10MG/ML (20 ML MDV) ONE (12:00)
[2024-06-04] MEDS ORDERED: PROPOFOL 10 MG/ML 20 ML VIAL IV ONE (12:00)
--- NOTE | 2024-06-04 12:04 | P.GSHP ---
History of Present Illness H&P Date: 06/04/24 Chief Complaint: Abnormal Cologuard 68-year-old male here for colonoscopy. Underwent recent Cologuard testing that was abnormal. No bowel complaints. No family history of colon cancer. Last colonoscopy normal 7 years ago. Past Medical History Past Medical History: Atrial Fibrillation, COPD, Hypertension, Myocardial Infarction (MT), Osteoarthritis (OA), Pneumonia, Sleep Apnea/CPAP/BIPAP Additional Past Medical History / Comment(s): BLOOD CLOT IN HEART 2012. USES CPAP FOR SLEEP APNEA Last Myocardial Infarction Date:: September 30 2017 History of Any Multi-Drug Resistant Organisms: MRSA Date of last positivie culture/infection: 2019 MDRO Source:: nasal Past Surgical History: Heart Catheterization With Stent, Joint Replacement, Orthopedic Surgery Additional Past Surgical History / Comment(s): CARDIOVERSION ATTEMPTED 08/2012. LT KNEE arthoplasty 2019 Right knee arthroplasty 2021 Past Anesthesia/Blood Transfusion Reactions: No Reported Reaction Date of Last Stent Placement:: September 30 2017 Smoking Status: Never smoker - Past Family History Father Family Medical History: Coronary Artery Disease (CAD), Osteoarthritis (OA) Sister(s) Family Medical History: Cancer Mother Family Medical History: Myocardial Infarction (MT) Medications and Allergies Home Medications Medication Instructions Recorded Confirmed Type Furosemide [Lasix] 40 mg PO DAILY 12/04/13 06/04/24 History Multivitamin [Men's Multi-Vitamin] 1 tab PO DAILY 12/04/13 06/04/24 History L.acidoph,Paracasei, B.lactis 1 cap PO HS 09/30/17 06/04/24 History [Probiotic] Aspirin 81 mg PO DAILY chew 10/03/17 06/04/24 Rx Atorvastatin [Lipitor] 80 mg PO HS #30 tab 10/03/17 06/04/24 Rx Metoprolol Tartrate [Lopressor] 50 mg PO BID #60 tab 10/03/17 06/04/24 Rx Nitroglycerin Sl Tabs [Nitrostat] 0.4 mg SUBLINGUAL Q5M PRN #25 tab 10/03/17 05/31/24 Rx Losartan [Cozaar] 100 mg PO DAILY 03/17/20 06/04/24 History Rivaroxaban [Xarelto] 20 mg PO HS 03/17/20 06/04/24 History Albuterol Sulfate [Albuterol 2 puff PO DAILY 05/31/24 06/04/24 History Sulfate Hfa] Fluticasone Propionate 1 spray NASAL DAILY 05/31/24 06/04/24 History [Fluticasone Propionate [place] 50 mcg Nasal [place]] Tiotropium 2.5 Mcg/Puff [Spiriva 2 puff INHALATION DAILY 05/31/24 06/04/24 History Respimat 2.5 Mcg] Allergies Allergy/AdvReac Type Severity Reaction Status Date / Time No Known Allergies Allergy Verified 06/04/24 11:12 Surgical - Exam Vital Signs Temp Pulse Resp BP Pulse Ox 97.1 F L 139 H 16 134/60 98 06/04/24 11:16 06/04/24 11:16 06/04/24 11:16 06/04/24 11:16 06/04/24 11:16 Physical exam: General: Well-developed, well-nourished HEENT: Normocephalic, sclerae nonicteric Abdomen: Nontender, nondistended Extremities: No edema Neuro: Alert and oriented Assessment and Plan (1) Abnormal stool test Narrative/Plan: Will proceed with colonoscopy at this time. Current Visit: Yes Status: Acute Code(s): R19.5 - OTHER FECAL ABNORMALITIES SNOMED Code(s): 904191703
--- NOTE | 2024-06-04 12:17 | P.PCN ---
Date of Procedure: 06/04/24 Procedure(s) Performed: PREOPERATIVE DIAGNOSIS: Abnormal Cologuard POSTOPERATIVE DIAGNOSIS: Descending colon polyp, sigmoid colon polyp, diverticulosis PROCEDURE: Colonoscopy with snare polypectomy and clip placement ANESTHESIA: MAC SURGEON: Castro Forrest M.D. SPECIMENS: Polyps ENDOSCOPIC PROCEDURE: The patient was placed on the endoscopy table in the left decubitus position. The Olympus colonoscope was inserted into the anus and passed under direct visualization to the base of the cecum. The appendiceal orifice was visualized. From that point the scope was slowly withdrawn inspecting all surfaces carefully. There were no neoplastic inflammatory or polypoid lesions throughout the cecum, ascending, and transverse colon. In the descending colon a small polyp was seen and removed using the snare with cautery technique. In the sigmoid colon at 25 cm a larger polyp measuring close to 1 cm was removed using the snare with cautery technique as well. The base of the polypectomy site was somewhat deep given the thickness of this polyp. A clip was deployed to reapproximate the edges of the polypectomy site. No bleeding was seen. The remainder of the sigmoid and rectum was normal. There was mild scattered diverticulosis. Digital rectal examination was normal. The patient was taken to the recovery room in stable condition per anesthesia guidelines. RECOMMENDATIONS: Await biopsy results. Will contact patient with timing of next colonoscopy
[2024-06-04 12:44] VITALS: BP 117/73; PULSE 92; RESP 18
== END 2024-06-04 13:04 | disposition home or self-care (01) ==
LOC: ORWHC2ENDO 10:52
PROVIDERS: ATTEND Surgery
DX: Z12.11 Encounter for screening for malignant neoplasm of colon (principal); D12.4 Benign neoplasm of descending colon; D12.5 Benign neoplasm of sigmoid colon; K57.30 Diverticulosis of large intestine without perforation or abscess without bleeding; I48.91 Unspecified atrial fibrillation; I10 Essential (primary) hypertension; E78.5 Hyperlipidemia, unspecified; I25.2 Old myocardial infarction; G47.30 Sleep apnea, unspecified; J44.9 Chronic obstructive pulmonary disease, unspecified; M19.90 Unspecified osteoarthritis, unspecified site; Z79.82 Long term (current) use of aspirin; Z79.01 Long term (current) use of anticoagulants; Z79.899 Other long term (current) drug therapy; Z86.14 Personal history of Methicillin resistant Staphylococcus aureus infection; Z95.5 Presence of coronary angioplasty implant and graft; Z96.653 Presence of artificial knee joint, bilateral
CPT/HCPCS: 88305; 45385; J2003; J2704